=== PATIENT | male | born 1965 | race Caucasian/White ===

== ENCOUNTER 2018-11-07 16:51 | Observation (INO) | payer BC, SELFPAY ==
[2018-11-07 16:54] VITALS: BP 176/91; PULSE 73; RESP 18; TEMP 37.1; O2SAT 99; BMI 32.3
--- NOTE | 2018-11-07 17:17 | EKG12_ITS ---
Test Reason : CONFUSION Blood Pressure : / mmHG Vent. Rate : 065 BPM Atrial Rate : 065 BPM P-R Int : 168 ms QRS Dur : 094 ms QT Int : 402 ms P-R-T Axes : 040 041 049 degrees QTc Int : 418 ms Sinus rhythm with Premature atrial complexes with Aberrant conduction Otherwise normal ECG Confirmed by TOMAS PROCTOR, JOVAN ([id number]), newspaper managing editor CHUNG LUJAN ([id number] on 11/09/2018 9:20:13 AM Referred By: ANGUS Confirmed By:JOVAN MARIN MD
--- NOTE | 2018-11-07 17:17 | CT_ITS ---
STUDY: CT BRAIN WITHOUT CONTRAST REASON FOR EXAM: Male, 53 years old. Expressive aphasia since 9:00 AM. RADIATION DOSAGE (If Supplied By Facility): CTDIvol = ( 44.99 ) mGy, DLP = ( 762.36 ) mGycm TECHNIQUE: Transaxial CT imaging of the brain was performed without administration of intravenous contrast material. Individualized dose optimization techniques were used for this CT. COMPARISON: None. FINDINGS: Normal soft tissue structures. Normal calvarium. Normal size ventricles and extra-axial spaces for the patient's age. Normal white matter tracts of the cerebral hemispheres. Normal basal ganglia and thalami. Normal brainstem. Normal cerebellum. There is no intracranial hemorrhage. There are no findings of an acute ischemic infarction. Normal visualized paranasal sinuses. CT/Brain/Head without Contrast IMPRESSION: Normal unenhanced CT scan of the brain. Electronically Signed: Alex Gambino MD at 18:04 EST , Service support ,
--- NOTE | 2018-11-07 17:21 | NURSING ---
NO OLD EKGS
[2018-11-07 18:15] VITALS: BP 173/96; PULSE 63
[2018-11-07 18:42] LABS: Anion Gap 7 (5-15); BUN 16 mg/dL (7-18); BUN/Creat Ratio 17.4 RATIO (10-20); Calcium,Total 8.9 mg/dL (8.5-10.1); Chloride 107 mmol/L (98-107); Creatinine, Serum 0.92 mg/dL (0.70-1.30); EST Glomerular Filtration Rate 91 mL/min (>60); Est Glom Filt Rate - Afr Amer 110 mL/min (>60); Estimated Creatinine Clearance 100.75 ml/min; Glucose 126 mg/dL (74-106); Potassium 3.8 mmol/L (3.5-5.1); Sodium Level 140 mmol/L (136-145)
[2018-11-07 18:44] LABS: Absolute Lymphocyte Count 2.04 X10^3/ul (0.83-4.51); Absolute Neutrophil Count 3.7 X10^3/uL (2.0-7.7); Basophil# 0.02 X10^3/uL; Basophil% 0.3 % (0-1); Eosinophil# 0.24 X10^3/uL; Eosinophils% 3.6 % (0-5); Hematocrit 46.1 % (40-54); Hemoglobin 15.5 g/dl (13.0-16.5); Lymphocyte # 2.04 X10^3/ul (4.0); Lymphocyte % 30.2 % (19-41); Mean Corp Hgb Conc 33.6 g/gl (32-36); Mean Corpuscular Hgb 30.9 pg (27.0-32.0); Mean Platelet Vol. 10.1 fl (6.2-12.0); Monocyte# 0.71 X10^3/uL; Monocyte% 10.5 % (0-10); Neutrophil # 3.73 X10^3/uL (2.7-7.7); Neutrophil % 55.3 % (47-70); Platelet Count 265 K/mm3 (150-450); RBC Distribution Width CV 13.4 % (11.6-14.6); RBC Distribution Width SD 44.5 fl (35.1-43.9); Red Blood Count 5.01 M/mm3 (4.6-6.2); White Blood Count 6.8 K/mm3 (4.4-11.0)
[2018-11-07 18:46] LABS: POSITIVE COUNT NO; POSITIVE DIFFERENTIAL NO; POSITIVE MORPHOLOGY NO
[2018-11-07 19:05] LABS: Bacteria 0 SEEN /hpf (None Seen); Mucous, Urine 0 SEEN /hpf (<or=2+); Squamous Epithelial Cells - UA 0 SEEN /hpf (0-5)
[2018-11-07 19:07] VITALS: BP 172/107; PULSE 63; RESP 18; O2SAT 98
[2018-11-07 19:35] LABS: Color, Urine Straw (Yellow); Glucose, Dipstick Normal (Normal); Ketone-Dipstick Negative (Negative); Leukocyte Esterase-Dipstick Negative /ul (Negative); Nitrite-Dipstick Negative (Negative); Occult Blood-Urine Negative /ul (Negative); Protein-Dipstick Negative (Negative); Urine Bilirubin Dipstick Negative (Negative); Urine Clarity Clear (Clear); Urine Urobilinogen Normal (Normal)
[2018-11-07 19:50] VITALS: BMI 32.3
[2018-11-07 20:09] LABS: White Blood Cells 0-5 SEEN /hpf (0-5)
[2018-11-07 20:10] LABS: Red Blood Cells-Urine 0-5 SEEN /hpf (0-5)
--- NOTE | 2018-11-07 21:08 | HP.PCM_ITS ---
Problem List (1) GETACHEW (obstructive sleep apnea) Status: Chronic (2) Stroke-like symptoms Status: Acute History of Present Illness Date of Admission: 11/07/18 Chief Complaint: expressive aphasia The patient is a 53 year old M with a significant history of obstructive sleep apnea who presented because of expressive aphasia. 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 After the physical he went back to his job however he could not read. Also he felt some clumsiness in using his hands. Also he has difficulty in expressing his thoughts. Because of the symptoms he came to the emergency department. CT head at emergency department was unremarkable. As presentation patient was not hypoglycemic. Past Medical History Past Medical History (Chronic Problems): Chronic Problems GETACHEW (obstructive sleep apnea) (Chronic) Allergies No Known Allergies Allergy (Verified 11/07/18 16:57) Home Medications: Ambulatory Orders Medication Instructions Recorded NK 11/07/18 Surgical History: no surgical history Lives: With Family Smoking Status: Never smoker Tobacco Use: Non-smoker - *Family History Maternal History Items: Cancer - SKIN CANCER Paternal History Items: - - Rheumatoid arthritis Review of Systems Constitutional: Denies: Chills, Fever, Weight Change HEENT: Denies: Head Aches, Sinus Congestion, Sinus Drainage Cardiovascular: Denies: Chest Pain, Palpitations Respiratory: Denies: Cough, Shortness of breath at rest, Sputum production Gastrointestinal: Denies: Abdominal Pain, Nausea, Vomiting Genitourinary: Denies: Dysuria Musculoskeletal: Denies: Joint Pain, Joint Tenderness Skin: Denies: Rash, Wounds Neurological: Reports: Change in Speech, Confusion. Denies: Focal weakness, Numbness, Tingling Psychiatric: Denies: Anxiety, Depression, Homicidal Ideations, Suicidal Ideations Hematologic/ Lymphatic: Denies: Easy Bruising, Easy Bleeding VTE Information - Inpt Only VTE Present on Admission: No VTE Mechan Device Prophylaxis: None VTE Pharm Prophylaxis ordered?: Yes Patient Problems: Active and Suspected Problems Stroke-like symptoms (Acute) - Physical Exam General: Alert, Oriented x3, Cooperative HEENT: Atraumatic, PERRLA, EOMI, Normocephalic Neck: Supple, No JVD, Negative Carotid Bruits Lungs: Clear to auscultation, Normal air movement Cardiovascular: Regular rate, No murmurs Abdomen: Bowel Sounds Present, Soft, Non Tender Extremities: No edema, Capillary Refill Less than 3 Seconds Skin: No rashes, No breakdown Musculoskeletal: No Tenderness to Palpation of Joints or Extremities Neurological: Motor Exam 5/5 strength throughout, Muscle tone normal, - - Dull sensation on the left arm. Mild expressive aphasia noted. Psych/Mental Status: Normal Affect, Appropriate Vital Signs Temp Pulse Resp BP Pulse Ox 98.7 F 63 18 172/107 H 98 11/07/18 16:54 11/07/18 19:07 11/07/18 19:07 11/07/18 19:07 11/07/18 19:07 Oxygen Delivery Method Room Air Weight: 108.136 kg Body Mass Index (BMI) 32.3 Laboratory Tests Past 24 Hrs 11/07/18 11/07/18 11/07/18 17:35 17:35 17:35 WBC 6.8 RBC 5.01 Hgb 15.5 Hct 46.1 MCV 92.0 MCH 30.9 MCHC 33.6 RDW 13.4 RDW Differential 44.5 H Plt Count 265 MPV 10.1 Immature Gran % (Auto) 0.100 Neut % (Auto) 55.3 Lymph % (Auto) 30.2 Murray % (Auto) 10.5 H Eos % (Auto) 3.6 Baso % (Auto) 0.3 Absolute Neuts (auto) 3.7 Absolute Lymphs (auto) 2.04 Total Counted Not Reportable Sodium 140 Potassium 3.8 Chloride 107 Carbon Dioxide 26.0 Anion Gap 7 BUN 16 Creatinine 0.92 Estim Creat Clear Calc 100.75 Est GFR (MDRD) Af Amer 110 Est GFR (MDRD) Non-Af 91 BUN/Creatinine Ratio 17.4 Glucose 126 H Calcium 8.9 Troponin I < 0.015 Urine Color Urine Clarity Urine pH Ur Specific [place] Urine Protein Urine Glucose (UA) Urine Ketones Urine Occult Blood Urine Nitrite Urine Bilirubin Urine Urobilinogen Ur Leukocyte Esterase Urine RBC Urine WBC Ur Squamous Epith Cells Urine Bacteria Urine Mucus Ethyl Alcohol 7.0 11/07/18 19:00 WBC RBC Hgb Hct MCV MCH MCHC RDW RDW Differential Plt Count MPV Immature Gran % (Auto) Neut % (Auto) Lymph % (Auto) [place] % (Auto) Eos % (Auto) Baso % (Auto) Absolute Neuts (auto) Absolute Lymphs (auto) Total Counted Sodium Potassium Chloride Carbon Dioxide Anion Gap BUN Creatinine Estim Creat Clear Calc Est GFR (MDRD) Af Amer Est GFR (MDRD) Non-Af BUN/Creatinine Ratio Glucose Calcium Troponin I Urine Color Straw Urine Clarity Clear Urine pH 7.0 Ur Specific [place] 1.010 Urine Protein Negative Urine Glucose (UA) Normal Urine Ketones Negative Urine Occult Blood Negative Urine Nitrite Negative Urine Bilirubin Negative Urine Urobilinogen Normal Ur Leukocyte Esterase Negative Urine RBC 0-5 SEEN Urine WBC 0-5 SEEN Ur Squamous Epith Cells 0 SEEN Urine Bacteria 0 SEEN Urine Mucus 0 SEEN Ethyl Alcohol Assessment/Plan All Active Problems Stroke-like symptoms (Acute) The patient is a 53 year old M with a significant history of obstructive sleep apnea who presented because of expressive aphasia; and incoordination of his upper extremities concerning for strokelike symptoms. Strokelike symptoms At presentation patient was not hypoglycemic NINDS NIH Scale was 0 at emergency department. At my evaluation NINDS NIH Scale was 2 because sensation was more sharp on the right side; and patient has some mild expressive aphasia.. CT of the head independently reviewed showed no acute brain or head pathology. -Check Hba1c, Lipid level Physical therapy, occupational therapy and speech therapy to work with patient. N.p.o. until bedside swallow eval. Patient passed swallow eval and cardiac diet was ordered. Daily aspirin. High intensity statin ordered Lipid profile and A1c ordered. Permissive hypertension. Control blood pressure with labetalol for systolic blood pressure of more than 220 or diastolic blood pressure of more than 120. -Permissive HTN for 24 hrs, fdc goal BP < 120/80 mmHg and goal Hba1c < 7% MRI/MRA of head; brain; and neck. Echocardiogram ordered. Elevated blood pressure without diagnosis of hypertension. Patient denies any previous history of hypertension. His elevated blood pressure could be due to autonomic effects to perfuse ischemic penumbra. Highest systolic blood pressure on admission was 176; diastolic blood pressure is 107. Permissive hypertension as above. After 24-48 hours consider blood pressure control if her blood pressure remains elevated with ith a buttermaker continuous churn goal BP < 120/80 mmHg Obstructive sleep apnea CPAP ordered DVT prophylaxis Subcutaneous heparin. Code Visit OBSV E&M: 89663 Initial observation care L3
[2018-11-07 21:51] VITALS: BP 174/94; PULSE 70; RESP 11; O2SAT 96
[2018-11-07 22:55] VITALS: BP 157/85; PULSE 59; RESP 20; TEMP 36.8; O2SAT 97
[2018-11-07 23:00] VITALS: BMI 32.3
[2018-11-07 23:02] VITALS: PULSE 60
[2018-11-08] VITALS (9 sets, daily range): BP systolic 141–154; BP diastolic 77–93; PULSE 58–75; RESP 16–18; TEMP 36.4–37.3; O2SAT 95–98; BMI 32.3
--- NOTE | 2018-11-08 00:25 | ED.DCSUM_ITS ---
- ER Visit Summary Date of Service: 11/08/18 Chief Complaint: Confusion History of Present Illness: The patient is a [address] Antonio mark. He reports that today at work he had an episode with slurred words, inability to read, he can comprehend a conversation and had an expressive aphasia, and decrea sed dexterity with his left hand. He reports that great deal of this is back to normal. He reports that he still feels mildly confused and is having word searching. Also continues to have blurred vision. He denies a headache. No vertigo. No numbness. Physical Examination: Vitals: Stable. Afebrile. General: Well-nourished and well-developed. Head: Normocephalic atraumatic. Neck: Supple, no lymphadenopathy. No JVD. Nontender. Cardiovascular: Regular rate and rhythm. No murmurs. Respiratory: No respiratory distress. Clear to auscultation bilaterally. Abdominal: Soft, nontender, nondistended, normal bowel sounds. No guarding, rebound, or peritoneal signs. Back: Nontender. Extremities: Nontender, no edema. Skin: Normal color, no rash. Neurologic: Alert and oriented ?3. Cranial nerves II through XII are intact. Normal strength and sensation. Psych: Normal affect. Test Results: EKG is sinus at [address] changes. Troponin is negative. UA is normal. Chem-7 is more for glucose 126. CBC is more for monocytes of 11. Blood alcohol level 0. CT brain shows no acute disease. Emergency Department Course and Treatment: Patient's NIH scale is 0. He is not a TPA candidate. However, I am concerned that he may have had a stroke. Treatment Plan: Patient was discussed with Dr. Ruiz. He will be admitted to the hospital for further evaluation and treatment. Disposition: Admitted in stable condition. Impression: 1. TIA. This note was generated with [employer] dictation software. It may contain incorrect words, spelling, and punctuation that were not noted in review of the chart prior to signing ED Disposition - Plan for ED Patient: Disposition: Acute Care Hospital [facility] Chief Complaint: Confusion
--- NOTE | 2018-11-08 01:12 | MRI_ITS ---
STUDY: MRA NECK WITH AND WITHOUT CONTRAST REASON FOR EXAM: Male, 53 years old. cva, slurred speech, expressive aphasia, blurred vision. TECHNIQUE: 3-D ojtu-th-anzshz (TOF) imaging was performed in an 1.5 T MRI scanner. 10 ml of Gadavist was administered for the contrast enhanced images. COMPARISON: None. FINDINGS: RIGHT CAROTID ARTERIES: Normal right common carotid artery (CCA). Normal right common carotid bulb. Normal origin of the right internal carotid (ICA) artery without a hemodynamically significant stenosis. Normal visualized cervical portion of the right internal carotid artery. Normal origin of the right external carotid artery (ECA). LEFT CAROTID ARTERIES: Normal left common carotid artery (CCA). Normal left common carotid bulb. Normal origin of the left internal carotid (ICA) artery without a hemodynamically significant stenosis. Normal visualized cervical portion of the left internal carotid artery. Normal origin of the left external carotid artery (ECA). VERTEBRAL ARTERIES: There is antegrade flow within the bilateral vertebral arteries with a small right vertebral artery, and a dominant left vertebral artery. MRI/MRA Neck WITH and W/O Contrast IMPRESSION: Unremarkable bilateral cervical carotid and vertebral arteries. Electronically Signed: Genia Cardoso MD at 10:52 EST Tel , Service support ,
--- NOTE | 2018-11-08 01:12 | ECHOD_ITS ---
Reason For Study: TIA/CVA Procedure This was a 2D Doppler, Color Flow transthoracic echocardiogram. Exam performed portable in patient room. Left Ventricle Normal size and thickness. The estimated ejection fraction is 65 %. Stage 1 diastolic dysfunction. No regional wall motion abnormalities noted. Right Ventricle Normal size and thickness. Normal systolic function. Atria Normal left atrium. Normal right atrium. Normal atrial septum. Bubble contrast study negative for right to left interatrial shunt. Mitral Valve The mitral valve is structurally normal. No prolapse or stenosis seen. Tricuspid Valve Normal tricuspid valve. Unable to estimate RV systolic pressure due to inadequate jet, pulmonary artery pressure probably normal. Aortic Valve Normal aortic valve. Trisinus/trileaflet aortic valve. Pulmonic Valve Normal pulmonic valve. Great Vessels Normal aortic root. Normal arch. Normal inferior vena cava. Inferior vena cava collapse with sniff. Pericardium/Pleural No pericardial effusion. Medication Performed a rapid injection of agitated mix of 9 cc saline and 1cc air to assess for atrial septal defect. MMode/2D Measurements & Calculations LVIDd: 4.7 cm IVSd: 1.3 cm Ao root diam: 3.0 cm LVIDs: 2.9 cm LVPWd: 1.2 cm RVDd: 3.5 cm FS: 38.7 % LAV(MOD-bp): 43.1 ml LA A4 area: 17.0 cm2 LA dimension(2D): 3.5 cm LAV(MOD-bp) Indexed: 18.8 ml/m2 LAV(MOD-sp2): 39.4 ml LAV(MOD-sp4): 45.4 ml RA A4 area: 17.2 cm2 Doppler Measurements & Calculations MV E max nic: 68.4 cm/sec Lat Peak E' Nic: 7.3 cm/sec Med Peak E' Nic: 5.2 cm/sec MV A max nic: 90.1 cm/sec E/E' lat: 9.4 E/E' med: 13.1 MV E/A: 0.76 Ao V2 max: 135.1 cm/sec LV V1 max: 98.2 cm/sec PA V2 max: 93.2 cm/sec Ao max P.3 mmHg LV V1 max P.9 mmHg Interpretation Summary The estimated ejection fraction is 65 %. Stage 1 diastolic dysfunction. Bubble contrast study negative for right to left interatrial shunt. Unable to estimate RV systolic pressure due to inadequate jet, pulmonary artery pressure probably normal. There is no comparison study available. Ordering Physician: Dawson Ruiz Referring Physician: Luis Felipe George Performed By: Betzaida Dorantes RDCS
--- NOTE | 2018-11-08 01:12 | MRI_ITS ---
STUDY: MRA OF THE HEAD WITHOUT CONTRAST REASON FOR EXAM: Male, 53 years old. cva, slurred speech, expressive aphasia, blurred vision TECHNIQUE: 3-D mtsl-wy-prwymh (TOF) imaging was performed with MIPs. The study was performed unenhanced. COMPARISON: None. FINDINGS: Normal bilateral petrous carotid arteries. Normal right cavernous carotid artery with a normal supraclinoid bifurcation. Normal left cavernous carotid artery with a normal supraclinoid bifurcation. There is non-visualization of the right A1 segment of the anterior cerebral arteries consistent with either aplastic development or an occlusion. Normal left A1 segments of the anterior cerebral artery. Normal intact anterior communicating artery (ACOM). Normal bilateral A2 segments of the anterior cerebral arteries. Normal right M1 and M2 segments of the middle cerebral arteries, with a normal M1 bifurcation. Normal left M1 and M2 segments of the middle cerebral arteries, with a normal M1 bifurcation. 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 Normal left posterior communicating artery (PCOM). There is a small atretic right vertebral artery with a dominant left vertebral artery. Normal basilar artery with a normal basilar bifurcation. The visualized bilateral superior cerebellar (SCA) arteries are normal. Normal bilateral posterior cerebral arteries. There is no demonstrated aneurysm of the [place] of [place]. There is no major vessel occlusion or hemodynamically significant stenosis. There is no demonstrated abnormality of the visualized brain. MRI/MRA Head ONLY without Contrast IMPRESSION: Unremarkable MRA of the head Electronically Signed: Genia Cardoso MD at 10:46 EST Tel , Service support ,
--- NOTE | 2018-11-08 01:12 | MRI_ITS ---
STUDY: MRI BRAIN WITHOUT CONTRAST REASON FOR EXAM: Male, 53 years old. cva, slurred speech, expressive aphasia, blurred vision TECHNIQUE: Standardized multiplanar fat and water weighted pulse sequences were obtained. COMPARISON: 11/07/2018 FINDINGS: Normal size of the ventricles and extra-axial spaces for the patient's age. Normal white matter tracts of the supratentorial brain. Normal bilateral basal ganglia. Normal thalami. There is no extra-axial fluid accumulation. Normal flow voids within the major intracranial circulation suggesting patency by spin echo criteria. Normal sella turcica, pituitary gland, infundibular stalk, optic chiasm and hypothalamus. Normal tectal plate and pineal gland. Normal midbrain, thomas and medulla. Normal cerebellum. Normal basal cisterns. Normal bilateral temporal bones. Normal bilateral internal auditory canals. No demonstrated orbital abnormality, within the constraints of a routine brain study. Normal visualized paranasal sinuses. Normal calvarium and skull base. Normal visualized soft tissue structures. Normal visualized upper cervical spine. MRI/Brain without Contrast IMPRESSION: Normal unenhanced MRI of the brain. Electronically Signed: Genia Cardoso MD at 10:29 EST Tel , Service support ,
[2018-11-08 06:08] LABS: Cholesterol 139 mg/dL (200); High Density Lipoprotein 27 mg/dL; Triglycerides 179 mg/dL; Very Low Density Lipoprotein 36 mg/dL (5-40)
[2018-11-08] MEDS: Heparin Injection (Vial) 5,000 UNIT/ML VIAL 5000 UNIT SC (06:22)
[2018-11-08 06:31] LABS: Hemoglobin A1c 6.2 % (4.2-6.3)
[2018-11-08] MEDS: Aspirin 81 MG TAB.CHEW PO (10:22)
--- NOTE | 2018-11-08 11:03 | PCM.PN.HOSP ---
Patient Problems: Active and Suspected Problems Stroke-like symptoms (Acute) Subjective: No further events. Did feel dizzy when he was up today. Vitals/I&O's: Vital Signs Temp Pulse Resp BP Pulse Ox 37.3 C 58 L 18 141/93 H 96 11/08/18 10:15 11/08/18 10:15 11/08/18 10:15 11/08/18 10:15 11/08/18 10:15 Oxygen Delivery Method Room Air Weight: 108.3 kg Body Mass Index (BMI) 32.3 Intake and Output for Last 24 Hours 11/06/18 11/07/18 11/08/18 23:59 23:59 23:59 Intake Total 200 / 200 200 / 200 Balance 200 / 200 200 / 200 General: Alert, No apparent distress HEENT: Atraumatic, PERRLA, EOMI, Normocephalic Oral: Moist Mucosa, No Gingival or Mucosal Lesions/ Ulcerations Neck: No Nodes, Thyroid Normal Size and Texture Lungs: Clear to auscultation, Normal air movement, No rhonchi, No wheeze Cardiovascular: Regular rate, Regular Rhythm, Normal S1, Normal S2, No murmurs Abdomen: Bowel Sounds Present, Soft, Non Tender, Non-Distended, No Hepato-splenomegaly, Passing Flatus Extremities: No edema, No Calf Tenderness Skin: No rashes, No breakdown Neurological: Cranial nerves II-XII grossly intact, Neuro grossly intact, Motor Exam 5/5 strength throughout Psych/Mental Status: Normal Affect, Appropriate Laboratory Results 11/07/18 17:35: WBC 6.8, RBC 5.01, Hgb 15.5, Hct 46.1, MCV 92.0, MCH 30.9, MCHC 33.6, RDW 13.4, RDW Differential 44.5 H, Plt Count 265, MPV 10.1, Immature Gran % (Auto) 0.100, Neut % (Auto) 55.3, Lymph % (Auto) 30.2, [place] % (Auto) 10.5 H, Eos % (Auto) 3.6, Baso % (Auto) 0.3, Absolute Neuts (auto) 3.7, Absolute Lymphs (auto) 2.04, Total Counted Not Reportable 11/07/18 17:35: Sodium 140, Potassium 3.8, Chloride 107, Carbon Dioxide 26.0, Anion Gap 7, BUN 16, Creatinine 0.92, Estim Creat Clear Calc 100.75, Est GFR (MDRD) Af Amer 110, Est GFR (MDRD) Non-Af 91, BUN/Creatinine Ratio 17.4, Glucose 126 H, Calcium 8.9, Troponin I < 0.015 11/07/18 17:35: Ethyl Alcohol 7.0 11/07/18 19:00: Urine Color Straw, Urine Clarity Clear, Urine pH 7.0, Ur Specific [place] 1.010, Urine Protein Negative, Urine Glucose (UA) Normal, Urine Ketones Negative, Urine Occult Blood Negative, Urine Nitrite Negative, Urine Bilirubin Negative, Urine Urobilinogen Normal, Ur Leukocyte Esterase Negative, Urine RBC 0-5 SEEN, Urine WBC 0-5 SEEN, Ur Squamous Epith Cells 0 SEEN, Urine Bacteria 0 SEEN, Urine Mucus 0 SEEN 11/08/18 05:20: Hemoglobin A1c 6.2 11/08/18 05:20: Triglycerides 179, Cholesterol 139, LDL Cholesterol 76, VLDL Cholesterol 36, HDL Cholesterol 27 L Clinical Impression(s) from Imaging Studies Brain CT 11/07/18 17:17 IMPRESSION: Normal unenhanced CT scan of the brain. Electronically Signed: Alex Gambino MD at 18:04 EST , Service support , Brain MRI 11/08/18 01:12 IMPRESSION: Normal unenhanced MRI of the brain. Electronically Signed: Genia Cardoso MD at 10:29 EST Tel , Service support , Head MRA 11/08/18 01:12 IMPRESSION: Unremarkable MRA of the head Electronically Signed: Genia Cardoso MD at 10:46 EST Tel , Service support , Neck MRA 11/08/18 01:12 IMPRESSION: Unremarkable bilateral cervical carotid and vertebral arteries. Electronically Signed: Genia Cardoso MD at 10:52 EST Tel , Service support , Current Medications Aspirin (Aspirin, Baby) 81 mg PO DAILY@0800 [facility] Last Admin: 11/08/18 10:22 Dose: 81 mg Atorvastatin Calcium (Lipitor) 80 mg PO QHS [facility] Bisacodyl (Dulcolax) 5 mg PO DAILY PRN PRN PRN Reason: Constipation Heparin Sodium (Porcine) (Heparin Na) 5,000 unit SC Q8 [facility] Last Admin: 11/08/18 06:22 Dose: 5,000 unit Labetalol HCl (Trandate) 10 mg IV Q10M PRN PRN PRN Reason: SBP> 220 or DBP > 120 Magnesium Hydroxide (Milk Of Magnesia) 30 ml PO DAILY PRN PRN Reason: Constipation Sodium Chloride () 5 - 15 ml IV UD PRN PRN Reason: SALINE FLUSH Medical Necessity - Tobacco Use Smoking Status: Never smoker Tobacco Use: Non-smoker Assessment/Plan All Active Problems Stroke-like symptoms (Acute) 1. suspected TIA Myriad of symptoms: dizziness, expressive aphasia, confusion MRI, MRA negative. echo pending neuro consult. TIA v vasovagal episode continue ASA and HIS 2. HTN improved 3. DVT proph: SQ heparin. DW patient's at bedside. Code Visit OBSV E&M: 32693 Subsequent observation care L3
--- NOTE | 2018-11-08 11:07 | PN_ITS ---
Patient Problems: Active and Suspected Problems Stroke-like symptoms (Acute) Subjective: No further events. Did feel dizzy when he was up today. Vitals/I&O's: Vital Signs Temp Pulse Resp BP Pulse Ox 37.3 C 58 L 18 141/93 H 96 11/08/18 10:15 11/08/18 10:15 11/08/18 10:15 11/08/18 10:15 11/08/18 10:15 Oxygen Delivery Method Room Air Weight: 108.3 kg Body Mass Index (BMI) 32.3 Intake and Output for Last 24 Hours 11/06/18 11/07/18 11/08/18 23:59 23:59 23:59 Intake Total 200 / 200 200 / 200 Balance 200 / 200 200 / 200 General: Alert, No apparent distress HEENT: Atraumatic, PERRLA, EOMI, Normocephalic Oral: Moist Mucosa, No Gingival or Mucosal Lesions/ Ulcerations Neck: No Nodes, Thyroid Normal Size and Texture Lungs: Clear to auscultation, Normal air movement, No rhonchi, No wheeze Cardiovascular: Regular rate, Regular Rhythm, Normal S1, Normal S2, No murmurs Abdomen: Bowel Sounds Present, Soft, Non Tender, Non-Distended, No Hepato- splenomegaly, Passing Flatus Extremities: No edema, No Calf Tenderness Skin: No rashes, No breakdown Neurological: Cranial nerves II-XII grossly intact, Neuro grossly intact, Motor Exam 5/5 strength throughout Psych/Mental Status: Normal Affect, Appropriate Laboratory Results 11/07/18 17:35: WBC 6.8, RBC 5.01, Hgb 15.5, Hct 46.1, MCV 92.0, MCH 30.9, MCHC 33.6, RDW 13.4, RDW Differential 44.5 H, Plt Count 265, MPV 10.1, Immature Gran % (Auto) 0.100, Neut % (Auto) 55.3, Lymph % (Auto) 30.2, [place] % (Auto) 10.5 H, Eos % (Auto) 3.6, Baso % (Auto) 0.3, Absolute Neuts (auto) 3.7, Absolute Lymphs (auto) 2.04, Total Counted Not Reportable 11/07/18 17:35: Sodium 140, Potassium 3.8, Chloride 107, Carbon Dioxide 26.0, Anion Gap 7, BUN 16, Creatinine 0.92, Estim Creat Clear Calc 100.75, Est GFR (MDRD) Af Amer 110, Est GFR (MDRD) Non-Af 91, BUN/Creatinine Ratio 17.4, Glucose 126 H, Calcium 8.9, Troponin I < 0.015 11/07/18 17:35: Ethyl Alcohol 7.0 11/07/18 19:00: Urine Color Straw, Urine Clarity Clear, Urine pH 7.0, Ur Specific [place] 1.010, Urine Protein Negative, Urine Glucose (UA) Normal, Urine Ketones Negative, Urine Occult Blood Negative, Urine Nitrite Negative, Urine Bilirubin Negative, Urine Urobilinogen Normal, Ur Leukocyte Esterase Negative, Urine RBC 0-5 SEEN, Urine WBC 0-5 SEEN, Ur Squamous Epith Cells 0 SEEN, Urine Bacteria 0 SEEN, Urine Mucus 0 SEEN 11/08/18 05:20: Hemoglobin A1c 6.2 11/08/18 05:20: Triglycerides 179, Cholesterol 139, LDL Cholesterol 76, VLDL Cholesterol 36, HDL Cholesterol 27 L Clinical Impression(s) from Imaging Studies Brain CT 11/07/18 17:17 IMPRESSION: Normal unenhanced CT scan of the brain. Electronically Signed: Alex Gambino MD at 18:04 EST , Service support , Brain MRI 11/08/18 01:12 IMPRESSION: Normal unenhanced MRI of the brain. Electronically Signed: Genia Cardoso MD at 10:29 EST Tel , Service support , Head MRA 11/08/18 01:12 IMPRESSION: Unremarkable MRA of the head Electronically Signed: Genia Cardoso MD at 10:46 EST Tel , Service support , Neck MRA 11/08/18 01:12 IMPRESSION: Unremarkable bilateral cervical carotid and vertebral arteries. Electronically Signed: Genia Cardoso MD at 10:52 EST Tel , Service support , Current Medications Aspirin (Aspirin, Baby) 81 mg PO DAILY@0800 [facility] Last Admin: 11/08/18 10:22 Dose: 81 mg Atorvastatin Calcium (Lipitor) 80 mg PO QHS [facility] Bisacodyl (Dulcolax) 5 mg PO DAILY PRN PRN PRN Reason: Constipation Heparin Sodium (Porcine) (Heparin Na) 5,000 unit SC Q8 [facility] Last Admin: 11/08/18 06:22 Dose: 5,000 unit Labetalol HCl (Trandate) 10 mg IV Q10M PRN PRN PRN Reason: SBP> 220 or DBP > 120 Magnesium Hydroxide (Milk Of Magnesia) 30 ml PO DAILY PRN PRN Reason: Constipation Sodium Chloride () 5 - 15 ml IV UD PRN PRN Reason: SALINE FLUSH Medical Necessity - Tobacco Use Smoking Status: Never smoker Tobacco Use: Non-smoker Assessment/Plan All Active Problems Stroke-like symptoms (Acute) 1. suspected TIA * Myriad of symptoms: dizziness, expressive aphasia, confusion * MRI, MRA negative. * echo pending * neuro consult. * TIA v vasovagal episode * continue ASA and HIS 2. HTN * improved 3. DVT proph: SQ heparin. DW patient's at bedside. Code Visit OBSV E&M: 92300 Subsequent observation care L3
--- NOTE | 2018-11-08 11:51 | CON.PCM_ITS ---
Reason for Consult Date of Consultation: 11/08/18 Reason for Consultation: aphasia History of Present Illness: The patient is a 53 year old M presented with word finding problems, beginning about 6am yesterday. 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 reports he had fasted the night before for lab testing, which was done then noted difficulty reading at work. went to cafeteria and ate, then improved today but notes he had abnormal language, and reports confusion until at least two this am. reports slurred speech, blurry vision, ringing in ears, difficulty with comprehension. she feels he was swaying and leaning to one side when he walked, to his left. gets up normally at 4am, and reports he was normal until 6am. admits to significant stress due to sons illness over the weekend, still has stress. uses cpap all night, every night for martita. denies insomnia until two nights ago. reports mild dull headache yesterday, normally doesnt have headache. per admit h&p:The patient is a 53 year old M with a significant history of obstructive sleep apnea who presented because of expressive aphasia. 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 After the physical he went back to his job however he could not read. Also he felt some clumsiness in using his hands. Also he has difficulty in expressing his thoughts. Because of the symptoms he came to the emergency department. CT head at emergency department was unremarkable. As presentation patient was not hypoglycemic. Past Medical History Past Medical History (Chronic Problems): Chronic Problems MARITTA (obstructive sleep apnea) (Chronic) Allergies No Known Allergies Allergy (Verified 11/07/18 16:57) Home Medications: Ambulatory Orders Medication Instructions Recorded NK 11/07/18 Surgical History: no surgical history Lives: With Family Smoking Status: Never smoker Tobacco Use: Non-smoker - *Family History Maternal History Items: Cancer - SKIN CANCER Paternal History Items: - - Rheumatoid arthritis Review of Systems Constitutional: Denies: Chills, Fever, Weight Change HEENT: Denies: Head Aches, Sinus Congestion, Sinus Drainage Cardiovascular: Denies: Chest Pain, Palpitations Respiratory: Denies: Cough, Shortness of breath at rest, Sputum production Gastrointestinal: Denies: Abdominal Pain, Nausea, Vomiting Genitourinary: Denies: Dysuria Musculoskeletal: Denies: Joint Pain, Joint Tenderness Skin: Denies: Rash, Wounds Neurological: Reports: Balance problems, Blurred vision, Change in Speech. Denies: Focal weakness, Numbness, Tingling Psychiatric: Reports: Anxiety. Denies: Depression, Homicidal Ideations, Suicidal Ideations Hematologic/ Lymphatic: Denies: Easy Bruising, Easy Bleeding Patient Problems: Active and Suspected Problems Stroke-like symptoms (Acute) - Physical Exam Vital Signs Temp Pulse Resp BP Pulse Ox 37.3 C 63 18 141/93 H 96 11/08/18 10:15 11/08/18 11:10 11/08/18 10:15 11/08/18 10:15 11/08/18 10:15 Oxygen Delivery Method Room Air Weight: 108.3 kg Body Mass Index (BMI) 32.3 Intake and Output for Last 24 Hours 11/06/18 11/07/18 11/08/18 23:59 23:59 23:59 Intake Total 200 / 200 200 / 200 Balance 200 / 200 200 / 200 Laboratory Tests Past 24 Hrs 11/07/18 11/07/18 11/07/18 17:35 17:35 17:35 WBC 6.8 RBC 5.01 Hgb 15.5 Hct 46.1 MCV 92.0 MCH 30.9 MCHC 33.6 RDW 13.4 RDW Differential 44.5 H Plt Count 265 MPV 10.1 Immature Gran % (Auto) 0.100 Neut % (Auto) 55.3 Lymph % (Auto) 30.2 [place] % (Auto) 10.5 H Eos % (Auto) 3.6 Baso % (Auto) 0.3 Absolute Neuts (auto) 3.7 Absolute Lymphs (auto) 2.04 Total Counted Not Reportable Sodium 140 Potassium 3.8 Chloride 107 Carbon Dioxide 26.0 Anion Gap 7 BUN 16 Creatinine 0.92 Estim Creat Clear Calc 100.75 Est GFR (MDRD) Af Amer 110 Est GFR (MDRD) Non-Af 91 BUN/Creatinine Ratio 17.4 Glucose 126 H Hemoglobin A1c Calcium 8.9 Troponin I < 0.015 Triglycerides Cholesterol LDL Cholesterol VLDL Cholesterol HDL Cholesterol Urine Color Urine Clarity Urine pH Ur Specific [place] Urine Protein Urine Glucose (UA) Urine Ketones Urine Occult Blood Urine Nitrite Urine Bilirubin Urine Urobilinogen Ur Leukocyte Esterase Urine RBC Urine WBC Ur Squamous Epith Cells Urine Bacteria Urine Mucus Ethyl Alcohol 7.0 11/07/18 11/08/18 11/08/18 19:00 05:20 05:20 WBC RBC Hgb Hct MCV MCH MCHC RDW RDW Differential Plt Count MPV Immature Gran % (Auto) Neut % (Auto) Lymph % (Auto) [place] % (Auto) Eos % (Auto) Baso % (Auto) Absolute Neuts (auto) Absolute Lymphs (auto) Total Counted Sodium Potassium Chloride Carbon Dioxide Anion Gap BUN Creatinine Estim Creat Clear Calc Est GFR (MDRD) Af Amer Est GFR (MDRD) Non-Af BUN/Creatinine Ratio Glucose Hemoglobin A1c 6.2 Calcium Troponin I Triglycerides 179 Cholesterol 139 LDL Cholesterol 76 VLDL Cholesterol 36 HDL Cholesterol 27 L Urine Color Straw Urine Clarity Clear Urine pH 7.0 Ur Specific [place] 1.010 Urine Protein Negative Urine Glucose (UA) Normal Urine Ketones Negative Urine Occult Blood Negative Urine Nitrite Negative Urine Bilirubin Negative Urine Urobilinogen Normal Ur Leukocyte Esterase Negative Urine RBC 0-5 SEEN Urine WBC 0-5 SEEN Ur Squamous Epith Cells 0 SEEN Urine Bacteria 0 SEEN Urine Mucus 0 SEEN Ethyl Alcohol mri reviewed, no acute Current Home Med List Medication Instructions Recorded Confirmed Type NK 11/07/18 11/07/18 History Current Medications Aspirin 81 mg 11/08/18 08:00 11/08/18 10:22 Aspirin, Baby PO 81 mg DAILY@0800 [facility] Administration Atorvastatin Calcium 80 mg 11/08/18 22:00 Lipitor PO QHS [facility] Bisacodyl 5 mg 11/08/18 01:12 Dulcolax PO DAILY PRN PRN Constipation Heparin Sodium (Porcine) 5,000 unit 11/08/18 06:00 11/08/18 06:22 Heparin Na SC 5,000 unit Q8 [facility] Administration Labetalol HCl 10 mg 11/08/18 01:12 Trandate IV Q10M PRN PRN SBP> 220 or DBP > 120 Magnesium Hydroxide 30 ml 11/08/18 01:12 Milk Of Magnesia PO DAILY PRN Constipation Sodium Chloride 5 - 15 ml 11/07/18 23:30 IV UD PRN SALINE FLUSH Assessment/Plan All Active Problems Stroke-like symptoms (Acute) complex migraine vs conversion disorder mri neg ok to dc asa daily continue cpap good compliance dc lipitor if no hypercholesterolemia
--- NOTE | 2018-11-08 14:20 | DCINST_ITS ---
- Discharge Diagnoses Current Active Problems: Current Active and Chronic Problems GETACHEW (obstructive sleep apnea) (Chronic) Stroke-like symptoms (Acute) You will use the following diet at home:: Cardiac Your food should be the consistency of: Regular Discharge Activity: Return to Normal Activity Call your doctor if you observe: - - unilateral weakness. difficulty speaking. Allergies/Adverse Reactions: Allergies No Known Allergies Allergy (Verified 11/07/18 16:57) Medications to take at Discharge Aspirin [Aspirin, Baby] 81 mg PO DAILY@0800 tab.chew 11/08/18 Primary Care Physician: Luis Felipe George MD [Primary Care Provider] - Within 2 Weeks Test Results: Test results from this visit will be discussed in further detail at your follow- up appointment, if applicable.
--- NOTE | 2018-11-08 14:20 | PCM.DC.SUM ---
Discharge Date and Diagnosis - Problem List Patient Problems: Active and Suspected Problems Stroke-like symptoms (Acute) Date of Admission: 11/07/18 Date of Discharge: 11/08/18 - Primary Discharge Diagnosis Active and Suspected Problems Stroke-like symptoms (Acute) - Secondary Discharge Diagnosis Chronic Problems GETACHEW (obstructive sleep apnea) (Chronic) Hospital Course and Treatment Imaging Results: Clinical Impression(s) from Imaging Studies Brain CT 11/07/18 17:17 IMPRESSION: Normal unenhanced CT scan of the brain. Electronically Signed: Alex Gambino MD at 18:04 EST , Service support , Brain MRI 11/08/18 01:12 IMPRESSION: Normal unenhanced MRI of the brain. Electronically Signed: Genia Cardoso MD at 10:29 EST Tel , Service support , Head MRA 11/08/18 01:12 IMPRESSION: Unremarkable MRA of the head Electronically Signed: Genia Cardoso MD at 10:46 EST Tel , Service support , Neck MRA 11/08/18 01:12 IMPRESSION: Unremarkable bilateral cervical carotid and vertebral arteries. Electronically Signed: Genia Cardoso MD at 10:52 EST Tel , Service support , Jaya Ross MD. Neurology. Operations: None Procedures: 2-D Echocardiogram Summary of Care Provided: The patient is a 53 year old M who presents with a myriad of complaints, including stress of the aphasia weakness and confusion. Patient was fasting for work when this occurred. Symptoms did resolve. Patient was evaluated in the emergency room and patient. The neurologic evaluation including MRI of the brain, MRA of the head and neck and echocardiogram. All of which were negative. Patient was seen in consultation by neurology who feels the patient's symptoms were probably related to complex migraine or a conversion disorder. Neurology did recommend continue with aspirin. Patient advised to return if he has any recurrent symptoms. [] Patient Problems: Active and Suspected Problems Stroke-like symptoms (Acute) - Physical Exam Vital Signs Temp Pulse Resp BP Pulse Ox 36.9 C 64 18 154/83 H 95 11/08/18 13:43 11/08/18 13:43 11/08/18 13:43 11/08/18 13:43 11/08/18 13:43 Oxygen Delivery Method Room Air Weight: 108.3 kg Body Mass Index (BMI) 32.3 Intake and Output for Last 24 Hours 11/06/18 11/07/18 11/08/18 23:59 23:59 23:59 Intake Total 200 / 200 420 / 420 Balance 200 / 200 420 / 420 Laboratory Tests Past 24 Hrs 11/07/18 11/07/18 11/07/18 17:35 17:35 17:35 WBC 6.8 RBC 5.01 Hgb 15.5 Hct 46.1 MCV 92.0 MCH 30.9 MCHC 33.6 RDW 13.4 RDW Differential 44.5 H Plt Count 265 MPV 10.1 Immature Gran % (Auto) 0.100 Neut % (Auto) 55.3 Lymph % (Auto) 30.2 [place] % (Auto) 10.5 H Eos % (Auto) 3.6 Baso % (Auto) 0.3 Absolute Neuts (auto) 3.7 Absolute Lymphs (auto) 2.04 Total Counted Not Reportable Sodium 140 Potassium 3.8 Chloride 107 Carbon Dioxide 26.0 Anion Gap 7 BUN 16 Creatinine 0.92 Estim Creat Clear Calc 100.75 Est GFR (MDRD) Af Amer 110 Est GFR (MDRD) Non-Af 91 BUN/Creatinine Ratio 17.4 Glucose 126 H Hemoglobin A1c Calcium 8.9 Troponin I < 0.015 Triglycerides Cholesterol LDL Cholesterol VLDL Cholesterol HDL Cholesterol Urine Color Urine Clarity Urine pH Ur Specific [place] Urine Protein Urine Glucose (UA) Urine Ketones Urine Occult Blood Urine Nitrite Urine Bilirubin Urine Urobilinogen Ur Leukocyte Esterase Urine RBC Urine WBC Ur Squamous Epith Cells Urine Bacteria Urine Mucus Ethyl Alcohol 7.0 11/07/18 11/08/18 11/08/18 19:00 05:20 05:20 WBC RBC Hgb Hct MCV MCH MCHC RDW RDW Differential Plt Count MPV Immature Gran % (Auto) Neut % (Auto) Lymph % (Auto) [place] % (Auto) Eos % (Auto) Baso % (Auto) Absolute Neuts (auto) Absolute Lymphs (auto) Total Counted Sodium Potassium Chloride Carbon Dioxide Anion Gap BUN Creatinine Estim Creat Clear Calc Est GFR (MDRD) Af Amer Est GFR (MDRD) Non-Af BUN/Creatinine Ratio Glucose Hemoglobin A1c 6.2 Calcium Troponin I Triglycerides 179 Cholesterol 139 LDL Cholesterol 76 VLDL Cholesterol 36 HDL Cholesterol 27 L Urine Color Straw Urine Clarity Clear Urine pH 7.0 Ur Specific [place] 1.010 Urine Protein Negative Urine Glucose (UA) Normal Urine Ketones Negative Urine Occult Blood Negative Urine Nitrite Negative Urine Bilirubin Negative Urine Urobilinogen Normal Ur Leukocyte Esterase Negative Urine RBC 0-5 SEEN Urine WBC 0-5 SEEN Ur Squamous Epith Cells 0 SEEN Urine Bacteria 0 SEEN Urine Mucus 0 SEEN Ethyl Alcohol Discharge Diet: No Restrictions Discharge Activity: Return to Normal Activity Call your doctor if you observe: - - unilateral weakness. difficulty speaking. Home Medications: Medications to take at Discharge Aspirin [Aspirin, Baby] 81 mg PO DAILY@0800 tab.chew 11/08/18 Primary Care Physician: Luis Felipe George MD [Primary Care Provider] - Within 2 Weeks Disposition: Home Minutes spent on discharge:: 35 Patient Condition:: Good Medical Necessity - Tobacco Use Smoking Status: Never smoker Tobacco Use: Non-smoker Meaningful Use Info Meaningful Use Diagnoses (Choose all that apply): None applicable Code Visit OBSV E&M: 25587 Observation care discharge
--- NOTE | 2018-11-08 14:23 | DS.PCM_ITS ---
Discharge Date and Diagnosis - Problem List Patient Problems: Active and Suspected Problems Stroke-like symptoms (Acute) Date of Admission: 11/07/18 Date of Discharge: 11/08/18 - Primary Discharge Diagnosis Active and Suspected Problems Stroke-like symptoms (Acute) - Secondary Discharge Diagnosis Chronic Problems GETACHEW (obstructive sleep apnea) (Chronic) Hospital Course and Treatment Imaging Results: Clinical Impression(s) from Imaging Studies Brain CT 11/07/18 17:17 IMPRESSION: Normal unenhanced CT scan of the brain. Electronically Signed: Alex Gambino MD at 18:04 EST , Service support , Brain MRI 11/08/18 01:12 IMPRESSION: Normal unenhanced MRI of the brain. Electronically Signed: Genia Cardoso MD at 10:29 EST Tel , Service support , Head MRA 11/08/18 01:12 IMPRESSION: Unremarkable MRA of the head Electronically Signed: Genia Cardoso MD at 10:46 EST Tel , Service support , Neck MRA 11/08/18 01:12 IMPRESSION: Unremarkable bilateral cervical carotid and vertebral arteries. Electronically Signed: Genia Cardoso MD at 10:52 EST Tel , Service support , Jaya Ross MD. Neurology. Operations: None Procedures: 2-D Echocardiogram Summary of Care Provided: The patient is a 53 year old M who presents with a myriad of complaints, including stress of the aphasia weakness and confusion. Patient was fasting for work when this occurred. Symptoms did resolve. Patient was evaluated in the emergency room and patient. The neurologic evaluation including MRI of the brain, MRA of the head and neck and echocardiogram. All of which were negative. Patient was seen in consultation by neurology who feels the patient's symptoms were probably related to complex migraine or a conversion disorder. Neurology did recommend continue with aspirin. Patient advised to return if he has any recurrent symptoms. [] Patient Problems: Active and Suspected Problems Stroke-like symptoms (Acute) - Physical Exam Vital Signs Temp Pulse Resp BP Pulse Ox 36.9 C 64 18 154/83 H 95 11/08/18 13:43 11/08/18 13:43 11/08/18 13:43 11/08/18 13:43 11/08/18 13:43 Oxygen Delivery Method Room Air Weight: 108.3 kg Body Mass Index (BMI) 32.3 Intake and Output for Last 24 Hours 11/06/18 11/07/18 11/08/18 23:59 23:59 23:59 Intake Total 200 / 200 420 / 420 Balance 200 / 200 420 / 420 Laboratory Tests Past 24 Hrs 11/07/18 11/07/18 11/07/18 17:35 17:35 17:35 WBC 6.8 RBC 5.01 Hgb 15.5 Hct 46.1 MCV 92.0 MCH 30.9 MCHC 33.6 RDW 13.4 RDW Differential 44.5 H Plt Count 265 MPV 10.1 Immature Gran % (Auto) 0.100 Neut % (Auto) 55.3 Lymph % (Auto) 30.2 [place] % (Auto) 10.5 H Eos % (Auto) 3.6 Baso % (Auto) 0.3 Absolute Neuts (auto) 3.7 Absolute Lymphs (auto) 2.04 Total Counted Not Reportable Sodium 140 Potassium 3.8 Chloride 107 Carbon Dioxide 26.0 Anion Gap 7 BUN 16 Creatinine 0.92 Estim Creat Clear Calc 100.75 Est GFR (MDRD) Af Amer 110 Est GFR (MDRD) Non-Af 91 BUN/Creatinine Ratio 17.4 Glucose 126 H Hemoglobin A1c Calcium 8.9 Troponin I < 0.015 Triglycerides Cholesterol LDL Cholesterol VLDL Cholesterol HDL Cholesterol Urine Color Urine Clarity Urine pH Ur Specific [place] Urine Protein Urine Glucose (UA) Urine Ketones Urine Occult Blood Urine Nitrite Urine Bilirubin Urine Urobilinogen Ur Leukocyte Esterase Urine RBC Urine WBC Ur Squamous Epith Cells Urine Bacteria Urine Mucus Ethyl Alcohol 7.0 11/07/18 11/08/18 11/08/18 19:00 05:20 05:20 WBC RBC Hgb Hct MCV MCH MCHC RDW RDW Differential Plt Count MPV Immature Gran % (Auto) Neut % (Auto) Lymph % (Auto) [place] % (Auto) Eos % (Auto) Baso % (Auto) Absolute Neuts (auto) Absolute Lymphs (auto) Total Counted Sodium Potassium Chloride Carbon Dioxide Anion Gap BUN Creatinine Estim Creat Clear Calc Est GFR (MDRD) Af Amer Est GFR (MDRD) Non-Af BUN/Creatinine Ratio Glucose Hemoglobin A1c 6.2 Calcium Troponin I Triglycerides 179 Cholesterol 139 LDL Cholesterol 76 VLDL Cholesterol 36 HDL Cholesterol 27 L Urine Color Straw Urine Clarity Clear Urine pH 7.0 Ur Specific [place] 1.010 Urine Protein Negative Urine Glucose (UA) Normal Urine Ketones Negative Urine Occult Blood Negative Urine Nitrite Negative Urine Bilirubin Negative Urine Urobilinogen Normal Ur Leukocyte Esterase Negative Urine RBC 0-5 SEEN Urine WBC 0-5 SEEN Ur Squamous Epith Cells 0 SEEN Urine Bacteria 0 SEEN Urine Mucus 0 SEEN Ethyl Alcohol Discharge Diet: No Restrictions Discharge Activity: Return to Normal Activity Call your doctor if you observe: - - unilateral weakness. difficulty speaking. Home Medications: Medications to take at Discharge Aspirin [Aspirin, Baby] 81 mg PO DAILY@0800 tab.chew 11/08/18 Primary Care Physician: Luis Felipe George MD [Primary Care Provider] - Within 2 Weeks Disposition: Home Minutes spent on discharge:: 35 Patient Condition:: Good Medical Necessity - Tobacco Use Smoking Status: Never smoker Tobacco Use: Non-smoker Meaningful Use Info Meaningful Use Diagnoses (Choose all that apply): None applicable Code Visit OBSV E&M: 31081 Observation care discharge
--- NOTE | 2018-11-08 14:45 | CHAPLAIN ---
Type of Pastoral Visit _x__ Initial Visit ___ Follow-up Visit ___ On-call Visit ___ General Patient Visit ___ Spiritual Assessment ___ Family Conference ___ Bereavement ___ Rapid Response ___ Code Blue ___ Other (describe below) Pastoral Care Referral From _x__ Patient ___ Family ___ Nurse ___ Physician ___ [place] ___ Supervising Editor [employer] ___ Other (describe below) Sacrament/Intervention ___ Active listening ___ Anointing ___ Spiritism ___ Bereavement ___ Communion ___ Isela exploration ___ ___ Life review ___ Prayer ___ Reconciliation ___ Sacrament of Sick _x__ Supportive presence ___ Wedding ___ Other (describe below) Pastoral Comments
--- OUTSIDE RECORDS SUMMARY | 2018-12-24 22:30 | XMS RPT_ITS ---
:1965 Author Organization [facility] Care Team Providers Name Role Phone MICHAEL GEORGE Primary Care Unavailable Dawson Ruiz Admitting Unavailable Kevin Card Attending Unavailable Jaya Ross Consulting Unavailable Dawson Ruiz Admitting Unavailable Dawson Ruiz Attending Unavailable MICHAEL GEORGE Primary Care Unavailable Kevin Card Consulting Unavailable Dawson Ruiz Admitting Unavailable Kevin Card Attending Unavailable MICHAEL GEORGE Primary Care Unavailable Kevin Card Consulting Unavailable Singh Lu Attending Unavailable Dawson Ruiz Referring Unavailable PROBLEMS PROBLEMS No Problem Records FoundPROCEDURES PROCEDURES No Procedure Records FoundRESULTS RESULTS CONSULTATION Observed: 11/10/2018 Status: F Source: [place] 10:06 AM [facility] REPOSITORY [facility] Medical Records Department [address] [place] [address] Consultation 11/08/18 1149 MR#: [id number] Acct: [id number] Name: AZEEM MARQUES Rep #: [id number] : 1965 53 From: Jaya Ross MD PCP: Michael George MD Status: DIS MINH Y Location: [place] [address] Reason for Consult Date of Consultation: 11/08/18 Reason for Consultation: aphasia History of Present Illness: The patient is a 53 year old M presented with word finding problems, beginning about 6am yesterday. 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 reports he had fasted the night before for lab testing, which was done then noted difficulty reading at work. went to cafeteria and ate, then improved today but notes he had abnormal language, and reports confusion until at least two this am. reports slurred speech, blurry vision, ringing in ears, difficulty with comprehension. she feels he was swaying and leaning to one side when he walked, to his left. gets up normally at 4am, and reports he was normal until 6am. admits to significant stress due to sons illness over the weekend, still has stress. uses cpap all night, every night for getachew. denies insomnia until two nights ago. reports mild dull headache yesterday, normally doesnt have headache. per admit h AND p:The patient is a 53 year old M with a significant history of obstructive sleep apnea who presented because of expressive aphasia. 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 After the physical he went back to his job however he could not read. Also he felt some clumsiness in using his hands. Also he has difficulty in expressing his thoughts. Because of the symptoms he came to the emergency department. CT head at emergency department was unremarkable. As presentation patient was not hypoglycemic. Past Medical History Past Medical History (Chronic Problems): Chronic Problems GETACHEW (obstructive sleep apnea) (Chronic) Allergies No Known Allergies Allergy (Verified 11/07/18 16:57) Home Medications: Ambulatory Orders Medication Instructions Recorded NK 11/07/18 Surgical History: no surgical history Lives: With Family Smoking Status: Never smoker Tobacco Use: Non-smoker - *Family History Maternal History Items: Cancer - SKIN CANCER Paternal History Items: - - Rheumatoid arthritis Review of Systems Constitutional: Denies: Chills, Fever, Weight Change HEENT: Denies: Head Aches, Sinus Congestion, Sinus Drainage Cardiovascular: Denies: Chest Pain, Palpitations Respiratory: Denies: Cough, Shortness of breath at rest, Sputum production Gastrointestinal: Denies: Abdominal Pain, Nausea, Vomiting Genitourinary: Denies: Dysuria Musculoskeletal: Denies: Joint Pain, Joint Tenderness Skin: Denies: Rash, Wounds Neurological: Reports: Balance problems, Blurred vision, Change in Speech. Denies: Focal weakness, Numbness, Tingling Psychiatric: Reports: Anxiety. Denies: Depression, Homicidal Ideations, Suicidal Ideations Hematologic/ Lymphatic: Denies: Easy Bruising, Easy Bleeding Patient Problems: Active and Suspected Problems Stroke-like symptoms (Acute) - Physical Exam Vital Signs Temp Pulse Resp BP Pulse Ox 37.3 C 63 18 141/93 H 96 11/08/18 10:15 11/08/18 11:10 11/08/18 10:15 11/08/18 10:15 11/08/18 10:15 Oxygen Delivery Method Room Air Weight: 108.3 kg Body Mass Index (BMI) 32.3 Intake and Output for Last 24 Hours Intake Total 200 / 200 200 / 200 Balance 200 / 200 200 / 200 Laboratory Tests Past 24 Hrs WBC 6.8 RBC 5.01 Hgb 15.5 WBC mri reviewed, no acute Current Home Med List Medication Instructions Recorded Confirmed Type NK 11/07/18 11/07/18 History Current Medications Aspirin 81 mg 11/08/18 08:00 11/08/18 10:22 Aspirin, Baby PO 81 mg Assessment/Plan All Active Problems Stroke-like symptoms (Acute) complex migraine vs conversion disorder mri neg ok to dc asa daily continue cpap good compliance dc lipitor if no hypercholesterolemia 11/10/18 1006 <Electronically signed by Jaya Ross MD> Date Jaya Ross MD Cosigner Signature (if applicable): Date CC: Michael George MD; Jaya Ross MD Signed 12 LEAD ELECTROCARDIOGRAM Observed: 11/09/2018 Status: F Source: ERICA 9:20 AM [facility] REPOSITORY [facility] Cardiovascular Services [address] [place] [address] 12 Lead EKG 11/07/18 1731 MR#: [id number] Acct: [id number] Name: AZEEM MARQUES Rep #: [id number] : 1965 53 From: Jackson Delgado MD Attending Dr: Kevin Card DO Status: DIS MINH Ordering Dr: Bran Brown MD Date: 11/07/18 Location: [facility] Sex: M C Admitted: 11/07/18 Test Reason : CONFUSION Blood Pressure : / mmHG Vent. Rate : 065 BPM Atrial Rate : 065 BPM P-R Int : 168 ms QRS Dur : 094 ms QT Int : 402 ms P-R-T Axes : 040 041 049 degrees QTc Int : 418 ms Sinus rhythm with Premature atrial complexes with Aberrant conduction Otherwise normal ECG Confirmed by TOMAS PROCTOR, JACKSON ([id number]), newspaper managing editor CHUNG LUJAN ([id number]) on 11/09/2018 9:20:13 AM Referred By: SL Confirmed By:JACKSON DELGADO MD 11/09/18 0920 Date Jackson Delgado MD CC: Michael George MD; Kevin Card DO; Bran Brown MD Signed DISCHARGE SUMMARY Observed: 11/08/2018 Status: F Source: ERICA 2:23 PM [facility] REPOSITORY [facility] Medical Records Department [address] [place] [address] Discharge Summary 11/08/18 1420 MR#: [id number] Acct: [id number] Name: AZEEM MARQUES Rep #: [id number] : 1965 53 From: Kevin Card DO PCP: Michael George MD Status: ADM MINH Y Location: [place] [address] Discharge Date and Diagnosis - Problem List Patient Problems: Active and Suspected Problems Stroke-like symptoms (Acute) Date of Admission: 11/07/18 Date of Discharge: 11/08/18 - Primary Discharge Diagnosis Active and Suspected Problems Stroke-like symptoms (Acute) - Secondary Discharge Diagnosis Chronic Problems GETACHEW (obstructive sleep apnea) (Chronic) Hospital Course and Treatment Imaging Results: Clinical Impression(s) from Imaging Studies Brain CT 11/07/18 17:17 IMPRESSION: Normal unenhanced CT scan of the brain. Electronically Signed: Alex Gambino MD at 18:04 EST , Service support , Brain MRI 11/08/18 01:12 IMPRESSION: Normal unenhanced MRI of the brain. Electronically Signed: Genia Cardoso MD at 10:29 EST Tel , Service support , Head MRA 11/08/18 01:12 IMPRESSION: Unremarkable MRA of the head Electronically Signed: Genia Cardoso MD at 10:46 EST Tel , Service support , Neck MRA 11/08/18 01:12 IMPRESSION: Unremarkable bilateral cervical carotid and vertebral arteries. Electronically Signed: Genia Cardoso MD at 10:52 EST Tel , Service support , Jaya Ross MD. Neurology. Operations: None Procedures: 2-D Echocardiogram Summary of Care Provided: The patient is a 53 year old M who presents with a myriad of complaints, including stress of the aphasia weakness and confusion. Patient was fasting for work when this occurred. Symptoms did resolve. Patient was evaluated in the emergency room and patient. The neurologic evaluation including MRI of the brain, MRA of the head and neck and echocardiogram. All of which were negative. Patient was seen in consultation by neurology who feels the patient's symptoms were probably related to complex migraine or a conversion disorder. Neurology did recommend continue with aspirin. Patient advised to return if he has any recurrent symptoms. [] Patient Problems: Active and Suspected Problems Stroke-like symptoms (Acute) - Physical Exam Vital Signs Temp Pulse Resp BP Pulse Ox 36.9 C 64 18 154/83 H 95 11/08/18 13:43 11/08/18 13:43 11/08/18 13:43 11/08/18 13:43 11/08/18 13:43 Oxygen Delivery Method Room Air Weight: 108.3 kg Body Mass Index (BMI) 32.3 Intake and Output for Last 24 Hours Intake Total 200 / 200 420 / 420 Balance 200 / 200 420 / 420 Laboratory Tests Past 24 Hrs WBC 6.8 RBC 5.01 Hgb 15.5 WBC Discharge Diet: No Restrictions Discharge Activity: Return to Normal Activity Call your doctor if you observe: - - unilateral weakness. difficulty speaking. Home Medications: Medications to take at Discharge Aspirin [Aspirin, Baby] 81 mg PO DAILY@0800 tab.chew 11/08/18 Primary Care Physician: Michael George MD [Primary Care Provider] - Within 2 Weeks Disposition: Home Minutes spent on discharge:: 35 Patient Condition:: Good Medical Necessity - Tobacco Use Smoking Status: Never smoker Tobacco Use: Non-smoker Meaningful Use Info Meaningful Use Diagnoses (Choose all that apply): None applicable Code Visit OBSV STEPHANI: [id number] Observation care discharge 11/08/18 1423 <Electronically signed by Kevin Card DO> Date Kevin Card DO Cosigner Signature (if applicable): Date CC: Michael George MD; Kevni Card DO Signed DISCHARGE INSTRUCTION Observed: 11/08/2018 Status: F Source: ERICA 2:20 PM [facility] REPOSITORY [facility] Medical Records Department [address] [place] [address] Instructions for Home/Discharge Instructions 11/08/18 1419 MR#: [id number] Acct: [id number] Name: AZEEM MARQUES Rep #: [id number] : 1965 53 From: Kevin Card DO PCP: Michael George MD Status: ADM MINH - Discharge Diagnoses Current Active Problems: Current Active and Chronic Problems GETACHEW (obstructive sleep apnea) (Chronic) Stroke-like symptoms (Acute) You will use the following diet at home:: Cardiac Your food should be the consistency of: Regular Discharge Activity: Return to Normal Activity Call your doctor if you observe: - - unilateral weakness. difficulty speaking. Allergies/Adverse Reactions: Allergies No Known Allergies Allergy (Verified 11/07/18 16:57) Medications to take at Discharge Aspirin [Aspirin, Baby] 81 mg PO DAILY@0800 tab.chew 11/08/18 Primary Care Physician: Michael George MD [Primary Care Provider] - Within 2 Weeks Test Results: Test results from this visit will be discussed in further detail at your follow-up appointment, if applicable. 11/08/18 1420 <Electronically signed by Kevin Card DO> Date Kevin Card DO CC: Michael George MD; Jaya Ross MD ECHOCARDIOGRAM COMPLETE Observed: 11/08/2018 Status: F Source: ERICA 1:27 PM [facility] REPOSITORY [facility] Cardiovascular Services [address] [place] [address] Echo Complete 11/08/18 0929 MR#: [id number] Acct: [id number] Name: AZEEM MARQUES Rep #: [id number] : 1965 53 From: Singh Lu MD Attending Dr: Kevin Card DO Status: ADM MINH Ordering Dr: Dawson Ruiz MD Date: 11/08/18 Location: [facility] Sex: M C Admitted: 11/07/18 Reason For Study: TIA/CVA Procedure This was a 2D Doppler, Color Flow transthoracic echocardiogram. Exam performed portable in patient room. Left Ventricle Normal size and thickness. The estimated ejection fraction is 65 %. Stage 1 diastolic dysfunction. No regional wall motion abnormalities noted. Right Ventricle Normal size and thickness. Normal systolic function. Atria Normal left atrium. Normal right atrium. Normal atrial septum. Bubble contrast study negative for right to left interatrial shunt. Mitral Valve The mitral valve is structurally normal. No prolapse or stenosis seen. Tricuspid Valve Normal tricuspid valve. Unable to estimate RV systolic pressure due to inadequate jet, pulmonary artery pressure probably normal. Aortic Valve Normal aortic valve. Trisinus/trileaflet aortic valve. Pulmonic Valve Normal pulmonic valve. Great Vessels Normal aortic root. Normal arch. Normal inferior vena cava. Inferior vena cava collapse with sniff. Pericardium/Pleural No pericardial effusion. Medication Performed a rapid injection of agitated mix of 9 cc saline and 1cc air to assess for atrial septal defect. MMode/2D Measurements AND Calculations LVIDd: 4.7 cm IVSd: 1.3 cm Ao root diam: 3.0 cm LVIDs: 2.9 cm LVPWd: 1.2 cm RVDd: 3.5 cm FS: 38.7 % LAV(MOD-bp): 43.1 ml LA A4 area: 17.0 cm2 LA dimension(2D): 3.5 cm LAV(MOD-bp) Indexed: 18.8 ml/m2 LAV(MOD-sp2): 39.4 ml LAV(MOD-sp4): 45.4 ml RA A4 area: 17.2 cm2 Doppler Measurements AND Calculations MV E max nic: 68.4 cm/sec Lat Peak E' Nic: 7.3 cm/sec Med Peak E' Nic: 5.2 cm/sec MV A max nic: 90.1 cm/sec E/E' lat: 9.4 E/E' med: 13.1 MV E/A: 0.76 Ao V2 max: 135.1 cm/sec LV V1 max: 98.2 cm/sec PA V2 max: 93.2 cm/sec Ao max P.3 mmHg LV V1 max P.9 mmHg Interpretation Summary The estimated ejection fraction is 65 %. Stage 1 diastolic dysfunction. Bubble contrast study negative for right to left interatrial shunt. Unable to estimate RV systolic pressure due to inadequate jet, pulmonary artery pressure probably normal. There is no comparison study available. Ordering Physician: Dawson Ruiz Referring Physician: Michael George Performed By: Betzaida Dorantes RDCS 11/08/18 1326 Date Singh Lu MD CC: Michael George MD; Kevin Card DO; Dawson Ruiz MD Date Dictated: 11/08/18928 Date Transcribed: 11/08/18 1326 Steam Crane Operator: Signed HISTORY AND PHYSICAL Observed: 11/08/2018 Status: F Source: ERICA EXAM 8:52 AM [facility] REPOSITORY [facility] Medical Records Department [address] [place] [address] History and Physical 11/07/182107 MR#: [id number] Acct: [id number] Name: AZEEM MARQUES Rep #: [id number] : 1965 53 From: Dawson Ruiz MD PCP: Michael George MD Status: ADM MINH Y Location: [place] [address] Problem List (1) GETACEHW (obstructive sleep apnea) Status: Chronic (2) Stroke-like symptoms Status: Acute History of Present Illness Date of Admission: 11/07/18 Chief Complaint: expressive aphasia The patient is a 53 year old M with a significant history of obstructive sleep apnea who presented because of expressive aphasia. 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 After the physical he went back to his job however he could not read. Also he felt some clumsiness in using his hands. Also he has difficulty in expressing his thoughts. Because of the symptoms he came to the emergency department. CT head at emergency department was unremarkable. As presentation patient was not hypoglycemic. Past Medical History Past Medical History (Chronic Problems): Chronic Problems GETACHEW (obstructive sleep apnea) (Chronic) Allergies No Known Allergies Allergy (Verified 11/07/18 16:57) Home Medications: Ambulatory Orders Medication Instructions Recorded NK 11/07/18 Surgical History: no surgical history Lives: With Family Smoking Status: Never smoker Tobacco Use: Non-smoker - *Family History Maternal History Items: Cancer - SKIN CANCER Paternal History Items: - - Rheumatoid arthritis Review of Systems Constitutional: Denies: Chills, Fever, Weight Change HEENT: Denies: Head Aches, Sinus Congestion, Sinus Drainage Cardiovascular: Denies: Chest Pain, Palpitations Respiratory: Denies: Cough, Shortness of breath at rest, Sputum production Gastrointestinal: Denies: Abdominal Pain, Nausea, Vomiting Genitourinary: Denies: Dysuria Musculoskeletal: Denies: Joint Pain, Joint Tenderness Skin: Denies: Rash, Wounds Neurological: Reports: Change in Speech, Confusion. Denies: Focal weakness, Numbness, Tingling Psychiatric: Denies: Anxiety, Depression, Homicidal Ideations, Suicidal Ideations Hematologic/ Lymphatic: Denies: Easy Bruising, Easy Bleeding VTE Information - Inpt Only VTE Present on Admission: No VTE Mechan Device Prophylaxis: None VTE Pharm Prophylaxis ordered?: Yes Patient Problems: Active and Suspected Problems Stroke-like symptoms (Acute) - Physical Exam General: Alert, Oriented x3, Cooperative HEENT: Atraumatic, PERRLA, EOMI, Normocephalic Neck: Supple, No JVD, Negative Carotid Bruits Lungs: Clear to auscultation, Normal air movement Cardiovascular: Regular rate, No murmurs Abdomen: Bowel Sounds Present, Soft, Non Tender Extremities: No edema, Capillary Refill Less than 3 Seconds Skin: No rashes, No breakdown Musculoskeletal: No Tenderness to Palpation of Joints or Extremities Neurological: Motor Exam 5/5 strength throughout, Muscle tone normal, - - Dull sensation on the left arm. Mild expressive aphasia noted. Psych/Mental Status: Normal Affect, Appropriate Vital Signs Temp Pulse Resp BP Pulse Ox 98.7 F 63 18 172/107 H 98 11/07/18 16:54 11/07/18 19:07 11/07/18 19:07 11/07/18 19:07 11/07/18 19:07 Oxygen Delivery Method Room Air Weight: 108.136 kg Body Mass Index (BMI) 32.3 Laboratory Tests Past 24 Hrs WBC 6.8 RBC 5.01 Hgb 15.5 Hct 46.1 MCV 92.0 MCH 30.9 MCHC 33.6 RDW 13.4 RDW Differential 44.5 H WBC RBC Hgb Hct MCV MCH MCHC RDW RDW Differential Plt Count MPV Immature Gran % (Auto) Neut % (Auto) Lymph % (Auto) [place] % (Auto) Assessment/Plan All Active Problems Stroke-like symptoms (Acute) The patient is a 53 year old M with a significant history of obstructive sleep apnea who presented because of expressive aphasia; and incoordination of his upper extremities concerning for strokelike symptoms. Strokelike symptoms At presentation patient was not hypoglycemic NINDS NIH Scale was 0 at emergency department. At my evaluation NINDS NIH Scale was 2 because sensation was more sharp on the right side; and patient has some mild expressive aphasia.. CT of the head independently reviewed showed no acute brain or head pathology. -Check Hba1c, Lipid level Physical therapy, occupational therapy and speech therapy to work with patient. N.p.o. until bedside swallow eval. Patient passed swallow eval and cardiac diet was ordered. Daily aspirin. High intensity statin ordered Lipid profile and A1c ordered. Permissive hypertension. Control blood pressure with labetalol for systolic blood pressure of more than 220 or diastolic blood pressure of more than 120. -Permissive HTN for 24 hrs, terminal block assembler goal BP < 120/80 mmHg and goal Hba1c < 7% MRI/MRA of head; brain; and neck. Echocardiogram ordered. Elevated blood pressure without diagnosis of hypertension. Patient denies any previous history of hypertension. His elevated blood pressure could be due to autonomic effects to perfuse ischemic penumbra. Highest systolic blood pressure on admission was 176; diastolic blood pressure is 107. Permissive hypertension as above. After 24-48 hours consider blood pressure control if her blood pressure remains elevated with ith a terminal block assembler goal BP < 120/80 mmHg Obstructive sleep apnea CPAP ordered DVT prophylaxis Subcutaneous heparin. Code Visit OBSV E AND M: [id number] Initial observation care L3 11/08/18 0852 <Electronically signed by Dawson Ruiz MD> Date Dawson Ruiz MD Cosigner Signature: Date (if applicable) CC: Michael George MD; Dawson Ruiz MD Signed LIPID PROFILE Collected: 11/08/2018 Status: F Source: ERICA 5:20 AM [facility] REPOSITORY TYPE CODE TESTS RESULT OUT OF RANGE REFERENCE UNITS LAB L501.4900 200 mg/dL Normal CHOL 139 Result Comment: <200 mg/dL Desirable 200-240 mg/dL Borderline >240 mg/dL High Risk LAB L501.5000 mg/dL Normal TRIG 179 Result Comment: The drugs N-Acetylcysteine and Metamizole may falsely depress this assay. Serum Triglycerides Reference Interval Normal <150 mg/dL Borderline high 150 - 199 mg/dL High 200 - 499 mg/dL Very High > or = 500 mg/dL LAB L501.6400 mg/dL Low HDL 27 Result Comment: The drugs N-Acetylcysteine and Metamizole may falsely depress this assay. Reference Range HDL <40 mg/dL Low HDL Cholesterol HDL >or= 60 mg/dL High HDL Cholesterol LAB L501.6500 0-130 mg/dL Normal LDL 76 LAB L501.6600 5-40 mg/dL Normal VLDL 36 Performed By: #### L500.4100 #### [facility] [address] [place], [address] HEMOGLOBIN A1C Collected: 11/08/2018 Status: F Source: [place] 5:20 AM [facility] REPOSITORY TYPE CODE TESTS RESULT OUT OF RANGE REFERENCE UNITS LAB L501.9985 4.2-6.3 % Normal HGB A1C 6.2 Performed By: #### L501.9985 #### [facility] [address] [place], [address] BRAIN WITHOUT Observed: 11/08/2018 Status: F Source: [place] CONTRAST 1:13 AM [facility] REPOSITORY [facility] Imaging Services [address] [place] [address] Brain without Contrast MR#: [id number] Acct: [id number] Name: AZEEM MARQUES Rep #: [id number] : 1965 M 53 From: Genia Cardoso PCP: Michael George MD Status: ADM MINH Study: Brain without Contrast Date of Exam: 11/08/18 Exam# [id number] Ordering Dr: Dawson Ruiz MD STUDY: MRI BRAIN WITHOUT CONTRAST REASON FOR EXAM: Male, 53 years old. cva, slurred speech, expressive aphasia, blurred vision TECHNIQUE: Standardized multiplanar fat and water weighted pulse sequences were obtained. COMPARISON: 11/07/2018 FINDINGS: Normal size of the ventricles and extra-axial spaces for the patient's age. Normal white matter tracts of the supratentorial brain. Normal bilateral basal ganglia. Normal thalami. There is no extra-axial fluid accumulation. Normal flow voids within the major intracranial circulation suggesting patency by spin echo criteria. Normal sella turcica, pituitary gland, infundibular stalk, optic chiasm and hypothalamus. Normal tectal plate and pineal gland. Normal midbrain, thomas and medulla. Normal cerebellum. Normal basal cisterns. Normal bilateral temporal bones. Normal bilateral internal auditory canals. No demonstrated orbital abnormality, within the constraints of a routine brain study. Normal visualized paranasal sinuses. Normal calvarium and skull base. Normal visualized soft tissue structures. Normal visualized upper cervical spine. MRI/Brain without Contrast IMPRESSION: Normal unenhanced MRI of the brain. Electronically Signed: Genia Cardoso MD at 10:29 EST Tel , Service support , CC: Michael George MD; Dawson Ruiz MD Steam Crane Operator: Signed MRA HEAD ONLY WITHOUT Observed: 11/08/2018 Status: F Source: [place] CONTRAST 1:13 AM [facility] REPOSITORY [facility] Imaging Services [address] [place] [address] MRA Head ONLY without Contrast MR#: [id number] Acct: [id number] Name: AZEEM MARQUES Rep #: [id number] : 1965 M 53 From: Genia Cardoso PCP: Michael George MD Status: ADM MINH Study: MRA Head ONLY without Contrast Date of Exam: 11/08/18 Exam# [id number] Ordering Dr: Dawson Ruiz MD STUDY: MRA OF THE HEAD WITHOUT CONTRAST REASON FOR EXAM: Male, 53 years old. cva, slurred speech, expressive aphasia, blurred vision TECHNIQUE: 3-D [id number] (TOF) imaging was performed with MIPs. The study was performed unenhanced. COMPARISON: None. FINDINGS: Normal bilateral petrous carotid arteries. Normal right cavernous carotid artery with a normal supraclinoid bifurcation. Normal left cavernous carotid artery with a normal supraclinoid bifurcation. There is non-visualization of the right A1 segment of the anterior cerebral arteries consistent with either aplastic development or an occlusion. Normal left A1 segments of the anterior cerebral artery. Normal intact anterior communicating artery (ACOM). Normal bilateral A2 segments of the anterior cerebral arteries. Normal right M1 and M2 segments of the middle cerebral arteries, with a normal M1 bifurcation. Normal left M1 and M2 segments of the middle cerebral arteries, with a normal M1 bifurcation. 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 Normal left posterior communicating artery (PCOM). There is a small atretic right vertebral artery with a dominant left vertebral artery. Normal basilar artery with a normal basilar bifurcation. The visualized bilateral superior cerebellar (SCA) arteries are normal. Normal bilateral posterior cerebral arteries. There is no demonstrated aneurysm of the [place]. There is no major vessel occlusion or hemodynamically significant stenosis. There is no demonstrated abnormality of the visualized brain. MRI/MRA Head ONLY without Contrast IMPRESSION: Unremarkable MRA of the head Electronically Signed: Genia Cardoso MD at 10:46 EST Tel , Service support , CC: Michael George MD; Dawson Ruiz MD Steam Crane Operator: Signed MRA NECK WITH AND W/O Observed: 11/08/2018 Status: F Source: [place] CONTRAST 1:13 AM [facility] REPOSITORY [facility] Imaging Services [address] [place] [address] MRA Neck WITH and W/O Contrast MR#: [id number] Acct: [id number] Name: AZEEM MARQUES Rep #: [id number] : 1965 M 53 From: Genia Cardoso PCP: Michael George MD Status: ADM MINH Study: MRA Neck WITH and W/O Contrast Date of Exam: 11/08/18 Exam# [id number] Ordering Dr: Dawson Ruiz MD STUDY: MRA NECK WITH AND WITHOUT CONTRAST REASON FOR EXAM: Male, 53 years old. cva, slurred speech, expressive aphasia, blurred vision. TECHNIQUE: 3-D pxuq-hm-mrtxny (TOF) imaging was performed in an 1.5 T MRI scanner. 10 ml of Gadavist was administered for the contrast enhanced images. COMPARISON: None. FINDINGS: RIGHT CAROTID ARTERIES: Normal right common carotid artery (CCA). Normal right common carotid bulb. Normal origin of the right internal carotid (ICA) artery without a hemodynamically significant stenosis. Normal visualized cervical portion of the right internal carotid artery. Normal origin of the right external carotid artery (ECA). LEFT CAROTID ARTERIES: Normal left common carotid artery (CCA). Normal left common carotid bulb. Normal origin of the left internal carotid (ICA) artery without a hemodynamically significant stenosis. Normal visualized cervical portion of the left internal carotid artery. Normal origin of the left external carotid artery (ECA). VERTEBRAL ARTERIES: There is antegrade flow within the bilateral vertebral arteries with a small right vertebral artery, and a dominant left vertebral artery. MRI/MRA Neck WITH and W/O Contrast IMPRESSION: Unremarkable bilateral cervical carotid and vertebral arteries. Electronically Signed: Genia Cardoso MD at 10:52 EST Tel , Service support , CC: Michael George MD; [place] Ruiz MD Steam Crane Operator: Signed EMERGENCY DEPARTMENT Observed: 11/08/2018 Status: F Source: [place] SUMMARY 1:04 AM [facility] REPOSITORY [facility] Medical Records Department [address] [place] [address] Emergency Department Summary 11/08/18 0023 MR#: [id number] Acct: [id number] Name: AZEEM MARQUES Rep #: [id number] : 1965 53 From: Bran Brown MD PCP: Michael George MD Status: ADM [facility] - ER Visit Summary Date of Service: 11/08/18 Chief Complaint: Confusion History of Present Illness: The patient is a [address] Antonio mark. He reports that today at work he had an episode with slurred words, inability to read, he can comprehend a conversation and had an expressive aphasia, and decreased dexterity with his left hand. He reports that great deal of this is back to normal. He reports that he still feels mildly confused and is having word searching. Also continues to have blurred vision. He denies a headache. No vertigo. No numbness. Physical Examination: Vitals: Stable. Afebrile. General: Well-nourished and well-developed. Head: Normocephalic atraumatic. Neck: Supple, no lymphadenopathy. No JVD. Nontender. Cardiovascular: Regular rate and rhythm. No murmurs. Respiratory: No respiratory distress. Clear to auscultation bilaterally. Abdominal: Soft, nontender, nondistended, normal bowel sounds. No guarding, rebound, or peritoneal signs. Back: Nontender. Extremities: Nontender, no edema. Skin: Normal color, no rash. Neurologic: Alert and oriented 3. Cranial nerves II through XII are intact. Normal strength and sensation. Psych: Normal affect. Test Results: EKG is sinus at [address] changes. Troponin is negative. UA is normal. Chem-7 is more for glucose 126. CBC is more for monocytes of 11. Blood alcohol level 0. CT brain shows no acute disease. Emergency Department Course and Treatment: Patient's NIH scale is 0. He is not a TPA candidate. However, I am concerned that he may have had a stroke. Treatment Plan: Patient was discussed with Dr. Ruiz. He will be admitted to the hospital for further evaluation and treatment. Disposition: Admitted in stable condition. Impression: 1. TIA. This note was generated with Amer[employer] software. It may contain incorrect words, spelling, and punctuation that were not noted in review of the chart prior to signing ED Disposition - Plan for ED Patient: Disposition: Acute Care Hospital [facility] Chief Complaint: Confusion What to do if you have Problems For any increased pain, shortness of breath, bleeding, nausea or vomiting, chest pain, or any unexpected problems, contact your Primary Care Provider. Call [facility] ([phone]) or report to the closest Emergency Room. Call 911 if necessary. 11/08/18 0104 <Electronically signed by Bran Brown MD> Date Bran Brown MD Cosigner Signature (If Indicated): Date CC: Michael George MD URINALYSIS, COMPLETE Collected: 11/07/2018 Status: F Source: ERICA 7:00 PM [facility] REPOSITORY Order Comment: How was Urine Obtained? CLEAN CATCH TYPE CODE TESTS RESULT OUT OF RANGE REFERENCE UNITS LAB L400.3000 Yellow COLOR Normal Straw LAB L400.3050 Clear Normal CLARITY Clear LAB L400.3200 Normal mg/dl Normal GLUCOSE, UR Normal LAB L400.3300 Negative mg/dL Normal BILIRUBIN URINE Negative LAB L400.3400 Negative mg/dl Normal KETONE UR Negative LAB L400.3465 1.002-1.030 Normal SP.GR. DIPSTX 1.010 LAB L400.3550 5.0 - 8.0 pH UR Normal 7.0 LAB L400.3600 Negative mg/dl PROT Normal DIPSTX Negative LAB L400.3700 Normal mg/dl Normal UROBILI Normal LAB L400.3750 Negative Normal NITRITE UR Negative LAB L400.3780 Negative /ul Normal OCCULT BLOOD-UR Negative LAB L400.3800 Negative /ul LEUK Normal ESTERASE Negative LAB L400.4050 0-5 /hpf WBC Normal 0-5 SEEN LAB L400.4100 0-5 /hpf Normal RBC-UA 0-5 SEEN LAB L400.4150 0-5 /hpf SQUAM 0 Normal EPI SEEN LAB L400.4300 None Seen /hpf 0 Normal BACTERIA SEEN LAB L400.4350 <or=2+ /hpf 0 Normal MUCUS, URINE SEEN Performed By: #### L400.0001 #### [facility] [address] [place], [place], [address] BASIC METABOLIC Collected: 11/07/2018 Status: F Source: [place] PROFILE (BMP) 5:35 PM [facility] REPOSITORY TYPE CODE TESTS RESULT OUT OF RANGE REFERENCE UNITS LAB L501.0100 74-106 mg/dL High GLU 126 Result Comment: Fasting Glucose result greater than or equal to 126 mg/dL suggests DIABETES MELLITUS per A.D.A. criteria. Please note revised GLUCOSE reference range effective 2017. LAB L501.1000 7-18 mg/dL Normal BUN 16 LAB L501.1100 0.70-1.30 mg/dL Normal CREAT,SERUM 0.92 Result Comment: The validity of the calculated GFR AND GFRAA in patients over 70 years has not been determined. Clinical correlation is essential. LAB L501.1110 >60 mL/min Normal EST GFR 91 Result Comment: Non- GFR Calc LAB L501.1115 >60 mL/min Normal EST GFR - AA 110 Result Comment: GFR Calc LAB L501.1255 ml/min Normal Estimated CRCL 100.75 LAB L501.1300 10-20 RATIO BUN/CRE Normal 17.4 LAB L501.2200 8.5-10 mg/dL .1 CA Normal 8.9 LAB L501.5300 136-14 mmol/L 5 NA Normal 140 LAB L501.5600 3.5-5. mmol/L 1 K Normal 3.8 Result Comment: Slight Hemolysis, Result may be falsely increased. LAB L501.5900 98-107 mmol/L Normal CL 107 LAB L501.6100 21.0-32.0 mmol/L Normal CO2 26.0 LAB L501.6200 5-15 Normal 7 GAP Performed By: #### L500.2500, L501.4010 #### [facility] [address] [place], [address] TROPONIN-I Collected: 11/07/2018 Status: F Source: [place] 5:35 PM [facility] REPOS[facility] TYPE CODE TESTS RESULT OUT OF RANGE REFERENCE UNITS LAB L501.4010 <0.045 ng/mL Normal < 0.015 TROPONIN-I Result Comment: TROPONIN-I EXPECTED VALUES <0.045 Negative 0.045 - 0.590 Consistent with Cardiac Damage > OR = 0.600 Critical Value Not every elevated troponin is indicative of NM. These values should be used with clinical judgement in examining the patient's clinical picture for diagnosis. To establish a diagnosis of NM versus myocardial injury, there must be a demonstrated rise and/or fall in the troponin values, in addition to ischemic symptoms, EKG changes, new regional wall motion abnormality, and/or angiographical evidence. PLEASE NOTE: REFERENCE RANGES EDITED 18 Performed By: #### L500.2500, L501.4010 #### [facility] [address] [place], [address] CBC W/DIFF, AUTOMATED Collected: 11/07/2018 Status: F Source: [place] 5:35 PM [facility] REPOS[facility] TYPE CODE TESTS RESULT OUT OF RANGE REFERENCE UNITS LAB L100.1000 4.4-11.0 K/mm3 Normal WBC 6.8 LAB L100.1200 4.6-6.2 M/mm3 Normal RBC 5.01 LAB L100.1300 13.0-16.5 g/dl Normal HGB 15.5 LAB L100.1400 40-54 % Normal HCT 46.1 LAB L100.1500 80-94 fL Normal MCV 92.0 LAB L100.1600 27.0-32.0 pg Normal MCH 30.9 LAB L100.1700 32-36 g/gl Normal MCHC 33.6 LAB L100.1810 11.6-14.6 % Normal RDW CV 13.4 LAB L100.1820 35.1-43.9 fl High RDW SD 44.5 LAB L100.1900 150-450 K/mm3 Normal PLT 265 LAB L100.2000 6.2-12.0 fl Normal MPV 10.1 LAB L100.2100 47-70 % Normal NEUT% 55.3 LAB L100.2200 19-41 % Normal LY% 30.2 LAB L100.2300 0-10 % High MONO% 10.5 LAB L100.2400 0-5 % Normal EO% 3.6 LAB L100.2500 0-1 % Normal BASO% 0.3 LAB L100.2550 0.0-0.9 % Normal IM GRAN % 0.100 Result Comment: IG% - Immature Granulocytes (promyelocytes, myelocytes and metamyelocytes) > 1% indicates that a LEFT SHIFT is Present. LAB L100.2620 2.0-7.7 X10 3/uL Normal Absolute Neut 3.7 LAB L100.2720 0.83-4.51 X10 3/ul Normal Absolute Lymph 2.04 Performed By: #### L100.0100 #### [facility] [address] [place], [address] ALCOHOL, BLOOD Collected: 11/07/2018 Status: F Source: [place] (MEDICAL)-SERUM 5:35 PM [facility] RE[facility] TYPE CODE TESTS RESULT OUT OF RANGE REFERENCE UNITS LAB L501.9100 mg/dL Normal SERUM 7.0 ETOH Result Comment: The serum:whole blood ethanol ratio is approximately 1.14 and varies slightly with hematocrit. Medical Alcohol reference interval and critical value in non-tolerant individuals; 50 - 100 Impairment 100 Intoxication 100 - 250 Severe Poisoning 250 - 400 Deep/possible fatal coma Performed By: #### L501.9100 #### [facility] [address] [place], [address] BRAIN/HEAD WITHOUT Observed: 11/07/2018 Status: F Source: [place] CONTRAST 5:19 PM [facility] RE[facility] Imaging Services [address] [place] [address] Brain/Head without Contrast MR#: [id number] Acct: [id number] Name: AZEEM MARQUES Garry Rep #: [id number] : 1965 M 53 From: Moises Gambino MD PCP: Michael George MD Status: REG ER Study: Brain/Head without Contrast Date of Exam: 11/07/18 Exam# [id number] Ordering Dr: Bran Brown MD STUDY: CT BRAIN WITHOUT CONTRAST REASON FOR EXAM: Male, 53 years old. Expressive aphasia since 9:00 AM. RADIATION DOSAGE (If Supplied By Facility): CTDIvol = ( 44.99 ) mGy, DLP = ( 762.36 ) mGycm TECHNIQUE: Transaxial CT imaging of the brain was performed without administration of intravenous contrast material. Individualized dose optimization techniques were used for this CT. COMPARISON: None. FINDINGS: Normal soft tissue structures. Normal calvarium. Normal size ventricles and extra-axial spaces for the patient's age. Normal white matter tracts of the cerebral hemispheres. Normal basal ganglia and thalami. Normal brainstem. Normal cerebellum. There is no intracranial hemorrhage. There are no findings of an acute ischemic infarction. Normal visualized paranasal sinuses. CT/Brain/Head without Contrast IMPRESSION: Normal unenhanced CT scan of the brain. Electronically Signed: Alex Gambino MD at 18:04 EST , Service support , CC: Michael George MD; Bran Brown MD Steam Crane Operator: Signed ALLERGIES ALLERGIES DATE TYPE / CODE NAME / CODE REACTION SEVERITY SOURCE 11/07/2018 Drug No Known Unknown [facility] Allergy/4160 Allergies/F00 [facility] 13846(SNOMED [id number](RXNOR Repository CT) M) ENCOUNTERS ENCOUNTERS ADMIT/DISCHARGE ACCOUNT ADMITTING ENCOUNTER LOCATION SOURCE NUMBER CLASS 11/08/2018 [id number] Ambulatory BMSBuilding:W Erica 6 [facility] Repository 11/07/2018/ [id number] [place], Ambulatory Erica [place] 8 0 [facility] ([place] ing:PCURoom: Repository [id number]: 1 11/07/2018 [id number] [facility] BMSBuilding:B [place] 8 [place] Repository 11/07/2018 [id number] [facility] Ambulatory BMSBuilding:B [place] 5 [place] [facility] Repository PAYERS PAYERS ENCOUNTER GUARANTOR PAYER SUBSCRIBER SOURCE 11/08/2018 AZEEM ROBLES Primary AZEEM SPENCER Insurance:ANTHEMPolic DONBRODYDOB: [place] Number: [id number] [address]Xhi: [id number] Repository Date:[id number] [address] () [id number] ALFRED [address]VG: 11/08/2018 Secondary NOT GIVENUNK [place] Insurance:SELF PAY [facility] Number: Effective Repository Date:2018-11-08 11/07/2018 AZEEM L DONLEYPO Primary AZEEM L Erica BOX Insurance:ANTHEMPolic DONLEYDOB: [place] [address], [place] Number: [id number] View Regional Medical Center [address]Aqs: [id number] Repository Date:[id number] [address]OX () [address], [place] [address]PU: 11/07/2018 Secondary NOT GIVENUNK [place] Insurance:SELF PAY [facility] Number: Effective Repository Date:2018-11-07 11/07/2018 AZEEM L DONLEYPO Primary AZEEM L Erica B[address] Insurance:ANTHEMPolic DONLEYDOB: [place] [address], [place] Number: [id number] View [facility] [address]Wte: [id number] Repository Date:[id number] [address] () [address], [place] [address]XL: 11/07/2018 Secondary NOT GIVENUNK Erica Insurance:SELF PAY [facility] Number: Effective Repository Date:2018-11-07 11/07/2018 AZEEM L DONLEYPO Primary AZEEM L Erica B[address] Insurance:ANTHEMPolic DONLEYDOB: [place] [address], [place] Number: [id number] View Regional Medical Center [address]Otp: [id number] Repository Date:[id number] [address] () [address], [place] [address]AM: 11/07/2018 Secondary NOT GIVENUNK [place] Insurance:SELF PAY [facility] Number: Effective Repository Date:2018-11-07
== END 2018-11-08 14:20 | disposition home or self-care (01) ==
LOC: ED 17:43 → PCU 21:31
PROVIDERS: Admitting Provider Hospitalist; Emergency Provider Emergency Medicine; Family Provider Family Medicine; PCP Family Medicine
DX: R47.01 Aphasia (principal); R53.1 Weakness; R41.0 Disorientation, unspecified; G47.33 Obstructive sleep apnea (adult) (pediatric); R29.702 NIHSS score 2; R03.0 Elevated blood-pressure reading, without diagnosis of hypertension; H53.8 Other visual disturbances
CPT/HCPCS: 36415; 70450; 70544; 70549; 70551; 80048; 80061; 80320; 81001; 83036; 84484; 85025; 92523; 93005; 93306; 94660; 96360; 96361; 96372; 97161; 97166; 97802; 99218; 99283; J7030; J7040; A4216; G0378; G0480

== ENCOUNTER 2019-04-19 09:19 | Outpatient (RCR) | payer OTHER, SELFPAY ==
[2018-11-08 00:53] VITALS: BMI 32.3
--- NOTE | 2019-04-19 16:14 | HP.SP.AD ---
History - History Date of Eval: 04/19/19 Previous speech therapy: No Other Relevant Medical History/Diagnoses/Surgery: Pt to [facility] ED 11/07/2018 with stroke like symptoms (left facial droop/dysarthria, left UE weakness/numbness, change in mental status), however, CT and MRI of brain found all structures WNL with no acute infarcts. Head and neck MRA WNL. Pt diagnosed at the time with complex migraine. Pt and report some symptoms took >60 days to reach baseline following episode. Pt is now having cognitive impairments (attention, STM, reading/writing difficulties, etc...) that fluctuate throughout the day/across days. Have found an association with blood pressure spikes. Pt is being followed by neurology. Underwent an EEG on this date to rule out seizures with results currently pending. Pt does have sleep apnea and has been on a C-Pap for 14 years. Additionally, pt has baseline dyslexia. Smoking Status: Never smoker Hx Smoking: No Hx Tobacco Use: No Hx Smoking Exposure: Yes - Pain Is pain an issue with your current prescribed condition?: No - Personal Patients Living Arrangements: With Significant Other Patient Allergies - Allergies Allergies No Known Allergies Allergy (Verified 11/07/18 16:57) CLQT - CLQT CLQT Administered: Yes CLQT: Cognitive Linguistic Quick Test (CLQT) is a criterion - referenced assessment designed for adults between the ages of 18 and 89 with known or suspected neurological dysfuntions. The CLQT is to assess strength and weaknesses in five cognitive domains. Severity ratings are within normal limits, mild, moderate, severe deficits. The subtests are as follows: Date: 04/19/19 - CLQT Comments Comments The CLQT was initiated on this date but unable to be fully completed due to time constraints (pt was over 20 mins late to this evaluation due to EEG earlier this date). The following subtest scores were obtained: Personal Facts: 8 Criterion Cut Score (CCS): 8. Symbol Cancellation: 12 CCS: 11. Confrontation Namin CCS:10. Clock Drawin CCS: 12. Therefore, the patient scored WNL on all administered subtests on this date for his age. However, it should be noted that the patient presents with overall decreased processing speed, conversational anomia, and observed difficulties with planning and STM, though the patient independently used all available supports to effectively complete tasks. The patient and his do report these issues affecting his performance both at home and at work, with the patient reporting withdrawing from conversation in order to reduce workload/stress with associated impairments. Plan - Plan Plan: Skilled speech-language therapy is thereby warranted for continued informal and standardized assessment and treatment of cognitive-linguistic functioning in order for the patient to achieve his highest level of safe, independent functioning across home, work, and social environments. - Recommendations Treatment Warranted: Yes - Frequency Frequency: 1x/Week Duration: 4-6 Months - Prognosis Prognosis: Good - Goals that are Established: Determination:: Goals will be added/modified as deemed necessary and appropriate. Therapy will be discontinued when results of re-evaluation indicate therapy is no longer needed or lack of progress has been documented. - Goal #1-5 Goal #1: The pt will independently utilize targeted attention and short term memory strategies to complete memory tasks of increasing complexity with 90% accuracy in 3/4 consecutive sessions. Goal #2: The pt will independently utilize targeted executive functioning strategies to effectively complete functional life tasks with 90% accuracy in 3/4 consecutive sessions. Goal #3: The pt will independently utilize targeted anomia strategies to complete word-finding tasks of increasing complexity with 90% accuracy in 3/4 consecutive sessions. Goal #4: The pt will complete functional writing tasks without spelling or transposition errors in a reasonable amount of time as judged by the OUTSIDE COLLECTOR with 90% accuracy in 3/4 consecutive sessions. Education - Patient Instruction Patient Education: Diagnosis, Treatment Plan, Goals
--- NOTE | 2019-04-26 11:23 | HP.SP.DC ---
ST Discharge Summary - Discharged: Discharge: Jacob Mcconnell is discharged from outpatient speech-language therapy effective 04/26/19. Jacob attended his initial evaluation on 04/19/19 with therapy being recommended at that time for mild cognitive-linguistic deficits. Please see full evaluation for more information. The patient did not attend any therapy sessions and has now opted to be discharged until his insurance deductible has been met in 2018. Please reconsult as warranted.
--- NOTE | 2019-04-26 11:40 | EEG_ITS ---
- Electroencephalogram This is an 18 channel EEG performed on this 54-year-old male with a history of seizures. The test is performed utilizing the International 10-20 electrode placement protocol as well as photic stimulation and hyperventilation. Background activity is 8 to 10 Hz symmetrically in the posterior leads which attenuates with eye-opening. The patient remained awake throughout the recording. Hyperventilation is performed for 3 minutes with good effort with no lateralizing or epileptiform changes and the post hyperventilatory phase is unre markable. The patient remained awake throughout the recording without lateralizing or epileptiform changes and photic stimulation generates a normal symmetric driving response in the posterior leads. EKG rhythm strip monitoring is normal sinus rhythm throughout the recording. Impression: Normal awake electroencephalogram
== END 2019-04-19 19:00 | disposition home or self-care (01) ==
LOC: SP 09:19
PROVIDERS: Family Provider Family Medicine; PCP Family Medicine; Referring Provider Clinical Nurse Specialist Acute Care; Visit Provider Clinical Nurse Specialist Acute Care
DX: G31.84 Mild cognitive impairment of uncertain or unknown etiology (principal); R48.0 Dyslexia and alexia; Z86.73 Personal history of transient ischemic attack (TIA), and cerebral infarction without residual deficits
CPT/HCPCS: 92523

== ENCOUNTER → 2019-04-19 | Outpatient (CLI) | payer OTHER, SELFPAY ==
[2018-11-08 00:53] VITALS: BMI 32.3
== END | disposition home or self-care (01) ==
LOC: PSN 07:24
PROVIDERS: Family Provider Family Medicine; PCP Family Medicine; Referring Provider Clinical Nurse Specialist Acute Care; Visit Provider Clinical Nurse Specialist Acute Care
DX: R56.9 Unspecified convulsions (principal)
CPT/HCPCS: 95819

== ENCOUNTER → 2019-05-31 | Outpatient (CLI) | payer OTHER, SELFPAY ==
[2018-11-08 00:53] VITALS: BMI 32.3
[2019-05-31 13:30] LABS: PTHIN 66.4 pg/mL (18.4-80.1); Vitamin B12 643 pg/mL (211-911)
[2019-05-31 13:39] LABS: Thyroid Stim Hormone (TSH) 2.79 uIU/mL (0.358-3.74)
[2019-06-03 14:50] LABS: ANTINUCLEAR ANTIBODIES DIRECT Negative (Negative)
== END | disposition home or self-care (01) ==
LOC: LAB 12:00
PROVIDERS: Family Provider Family Medicine; PCP Family Medicine; Referring Provider Clinical Nurse Specialist Acute Care; Visit Provider Clinical Nurse Specialist Acute Care
DX: R56.9 Unspecified convulsions (principal); R41.0 Disorientation, unspecified; R41.81 Age-related cognitive decline
CPT/HCPCS: 36415; 82330; 82607; 82746; 83970; 84443; 86038; 86225; 86235

== ENCOUNTER → 2019-07-19 | Outpatient (CLI) | payer OTHER, SELFPAY ==
[2018-11-08 00:53] VITALS: BMI 32.3
== END | disposition home or self-care (01) ==
PROVIDERS: Family Provider Family Medicine; PCP Family Medicine; Referring Provider Clinical Nurse Specialist Acute Care; Visit Provider Clinical Nurse Specialist Acute Care
DX: G47.33 Obstructive sleep apnea (adult) (pediatric) (principal)
CPT/HCPCS: 95811

== ENCOUNTER → 2020-06-26 | Outpatient (CLI) | payer OTHER, MEDICAID, SELFPAY ==
[2020-06-26 08:23] VITALS: BMI 32.3
[2020-06-26 12:15] LABS: Absolute Lymphocyte Count 1.39 X10^3/uL (0.83-4.51); Absolute Neutrophil Count 3.3 X10^3/uL (2.0-7.7); Basophil# 0.02 X10^3/uL; Basophil% 0.4 % (0-1); Eosinophil# 0.21 X10^3/uL; Eosinophils% 3.7 % (0-5); Hematocrit 47.1 % (40-54); Hemoglobin 15.1 g/dL (13.0-16.5); Lymphocyte # 1.39 X10^3/ul (4.0); Lymphocyte % 24.4 % (19-41); Mean Corp Hgb Conc 32.1 g/dL (32-36); Mean Corpuscular Hgb 31.1 pg (27.0-32.0); Mean Corpuscular Volume 96.9 fL (80-94); Monocyte# 0.75 X10^3/uL; Monocyte% 13.2 % (0-10); NRBC Flagged by Analyzer 0 % (0-5); Neutrophil # 3.31 X10^3/uL (2.7-7.7); Neutrophil % 57.9 % (47-70); Platelet Count 286 K/mm3 (150-450); RBC Distribution Width CV 13.2 % (11.6-14.6); RBC Distribution Width SD 47.2 fl (35.1-43.9); Red Blood Count 4.86 M/mm3 (4.6-6.2); White Blood Count 5.7 K/mm3 (4.4-11.0)
[2020-06-26 12:31] LABS: ALB/GLOB Ratio 1.1 RATIO (0.9-2.4); AST(SGOT) 16 U/L (15-37); Alanine Aminotransfer ALT/SGPT 27 U/L (16-61); Albumin, Serum 3.9 g/dL (3.2-5.0); Alkaline Phosphatase 83 U/L (45-117); Anion Gap 3 (5-15); BUN 18 mg/dL (7-18); BUN/Creat Ratio 19.1 RATIO (10-20); Calcium,Total 8.9 mg/dL (8.5-10.1); Chloride 106 mmol/L (98-107); Cholesterol 140 mg/dL (200); Creatinine, Serum 0.94 mg/dL (0.70-1.30); EST Glomerular Filtration Rate 88 mL/min (>60); Est Glom Filt Rate - Afr Amer 107 mL/min (>60); Globulin 3.6 g/dL (2.2-4.2); Glucose 88 mg/dL (74-106); High Density Lipoprotein 38 mg/dL; Potassium 4.3 mmol/L (3.5-5.1); Protein, Total 7.5 g/dL (6.4-8.2); Sodium Level 139 mmol/L (136-145); Triglycerides 107 mg/dL; Very Low Density Lipoprotein 21 mg/dL (5-40)
== END | disposition home or self-care (01) ==
PROVIDERS: PCP Internal Medicine; Referring Provider Internal Medicine; Visit Provider Internal Medicine
DX: I10 Essential (primary) hypertension (principal); G47.30 Sleep apnea, unspecified
CPT/HCPCS: 36415; 80053; 80061; 85025

== ENCOUNTER → 2020-08-25 | Outpatient (CLI) | payer OTHER, MEDICAID, SELFPAY ==
[2020-06-26 08:23] VITALS: BMI 32.3
== END | disposition home or self-care (01) ==
LOC: SL 14:19
PROVIDERS: PCP Internal Medicine; Referring Provider Clinical Nurse Specialist Acute Care; Visit Provider Clinical Nurse Specialist Acute Care
DX: G47.33 Obstructive sleep apnea (adult) (pediatric) (principal)
CPT/HCPCS: 98960; G0463

== ENCOUNTER → 2020-09-25 | Outpatient (CLI) | payer OTHER, MEDICAID, SELFPAY ==
[2020-09-25 13:40] LABS: PSA,Total - Annual Screen 1.13 ng/mL (0.00-4.00)
== END | disposition home or self-care (01) ==
LOC: BIMLAB 08:42
PROVIDERS: PCP Internal Medicine; Referring Provider Internal Medicine; Visit Provider Internal Medicine
DX: Z00.00 Encounter for general adult medical examination without abnormal findings (principal); Z12.5 Encounter for screening for malignant neoplasm of prostate
CPT/HCPCS: 36415; 84153; G0103

== ENCOUNTER → 2020-11-13 20:15 | Outpatient (CLI) | payer OTHER, MEDICAID, SELFPAY ==
[2020-10-16 11:07] VITALS: BMI 29.2
== END ==
PROVIDERS: PCP Internal Medicine; Referring Provider Nurse Practitioner Acute Care; Visit Provider Nurse Practitioner Acute Care
DX: G47.30 Sleep apnea, unspecified (principal)
CPT/HCPCS: 95811

== ENCOUNTER → 2020-11-14 07:01 | Outpatient (CLI) | payer OTHER, MEDICAID, SELFPAY ==
[2020-10-16 11:07] VITALS: BMI 29.2
--- NOTE | 2020-11-14 07:24 | MRI_ITS ---
STUDY: MRI BRAIN WITHOUT CONTRAST REASON FOR EXAM: Male, 55 years old. DEMENTIA, APHASIA, TROUBLE WALKING -- x 1 year TECHNIQUE: Standardized multiplanar fat and water weighted pulse sequences were obtained. COMPARISON: None. FINDINGS: Normal size of the ventricles and extra-axial spaces for the patient''s age. Normal white matter tracts of the supratentorial brain. There is no evidence for recent intracranial ischemia or other cause of cytotoxic edema on diffusion weighted imaging (DWI). Normal T2* images of the brain without demonstrated susceptibility artifact. There is no demonstrated hemosiderin stain. Normal bilateral basal ganglia. Normal thalami. There is no extra-axial fluid accumulation. Normal flow voids within the major intracranial circulation suggesting patency by spin echo criteria. Normal sella turcica, pituitary gland, infundibular stalk, optic chiasm and hypothalamus. Normal tectal plate and pineal gland. Normal midbrain, thomas and medulla. Normal cerebellum. Normal basal cisterns. Normal bilateral temporal bones. Normal bilateral internal auditory canals. No demonstrated orbital abnormality, within the constraints of a routine brain study. Normal visualized paranasal sinuses. Normal calvarium and skull base. Normal visualized soft tissue structures. Normal visualized upper cervical spine. MRI/Brain without Contrast IMPRESSION: No evidence of acute intracranial bleed, mass or ischemia. Electronically Signed: Kam Reese DO at 9:10 EST , Service support ,
[2020-11-14 08:16] LABS: T4 Free Direct 0.87 ng/dL (0.76-1.46); Thyroid Stim Hormone (TSH) 2.27 uIU/mL (0.358-3.74)
[2020-11-16 09:30] LABS: Vitamin B12 423 pg/mL (211-911)
== END ==
PROVIDERS: PCP Internal Medicine; Referring Provider Psychiatry & Neurology Sleep Medicine; Visit Provider Psychiatry & Neurology Sleep Medicine
DX: I63.9 Cerebral infarction, unspecified (principal); R47.01 Aphasia; R53.1 Weakness; G47.33 Obstructive sleep apnea (adult) (pediatric); R41.89 Other symptoms and signs involving cognitive functions and awareness
CPT/HCPCS: 36415; 70551; 82607; 84439; 84443

== ENCOUNTER → 2021-07-02 06:12 | Outpatient (CLI) | payer OTHER, MEDICAID, SELFPAY ==
[2021-02-19 10:34] VITALS: BMI 34.2
--- NOTE | 2021-07-02 08:45 | TELEMED_ITS ---
[facility] Telemed has confirmed receipt of a request for visit. This document confirms receipt of the order initiating the consult. To find the results of the consultation, please view the patient's reports for the scanned Telemed Consult.
[2021-07-02 10:36] LABS: Erythrocyte Sedimentation Rate 12 mm/hr (0-20)
[2021-07-02 11:13] LABS: Vitamin D,25 Hydroxy 36.2 ng/mL
[2021-07-02 11:32] LABS: Ferritin 225 ng/mL (26-388)
[2021-07-07 03:07] LABS: Albumin 3.9 g/dL (2.9-4.4); Alpha-1-Globulins 0.2 g/dL (0.0-0.4); Alpha-2-Globulins 0.8 g/dL (0.4-1.0); Gamma Globulin 1.2 g/dL (0.4-1.8); Immunoglobulin A 316 mg/dL (90-386); Immunoglobulin G 1142 mg/dL (603-1613); Immunoglobulin M 72 mg/dL (20-172); PROEL- TOTAL PROTEIN 7.2 g/dL (6.0-8.5)
[2021-07-07 10:07] LABS: Arsenic 7245 3 ug/L (2-23); Lead, Blood < 1 ug/dL (0-4); Mercury, Blood 85324 < 1.0 ug/L (0.0-14.9)
== END ==
PROVIDERS: PCP Internal Medicine; Referring Provider Psychiatry & Neurology Sleep Medicine; Visit Provider Psychiatry & Neurology Sleep Medicine
DX: G47.33 Obstructive sleep apnea (adult) (pediatric) (principal); F98.8 Other specified behavioral and emotional disorders with onset usually occurring in childhood and adolescence; D53.1 Other megaloblastic anemias, not elsewhere classified; R41.82 Altered mental status, unspecified; R26.9 Unspecified abnormalities of gait and mobility; R27.9 Unspecified lack of coordination; R20.2 Paresthesia of skin
CPT/HCPCS: 36415; 82175; 82306; 82607; 82728; 82784; 83655; 83825; 83921; 84165; 85652; 86038; 86334; 95819

== ENCOUNTER 2022-09-28 17:56 | Emergency (ER) | payer OTHER, SELFPAY ==
[2022-09-28 17:57] VITALS: BP 189/85; PULSE 72; RESP 16; TEMP 36.2; O2SAT 99; BMI 28.0
--- NOTE | 2022-09-28 19:41 | EDS_ITS ---
HPI History of Present Illness Chief Complaint: Lower Extremity Injury Narrative Narrative: 57-year-old male presenting with left knee pain. He states he had a mechanical fall the other day while walking the dog and struck his left knee. He does not believe he struck anything else. He has been ambulatory since then. He notes swelling over the left knee and bruising. The bruising has slowly descended down into the calf and the tibial region. Patient denies any new trauma. He is on daily aspirin but no anticoagulation. [facility] Medical History Back problem History of stroke Hypertension Seasonal allergies Sleep apnea Home Medications aspirin 81 mg chewable tablet 81 mg PO DAILY@0800 11/08/18 [Rx Last Taken Unknown] fexofenadine 60 mg tablet (Allergy Relief (fexofenadine)) 60 mg PO BID PRN allergies 02/18/22 [History Last Taken Unknown] Allergy/AdvReac Type Severity Reaction Status Date / Time No Known Allergies Allergy Verified 09/28/22 18:00 Family History Other Alcoholism CVA (cerebral vascular accident) Diabetes Mental disorder Skin cancer Social History Smoking Status: Never smoker alcohol intake: never substance use type: does not use what type of physical activity do you participate in: other details: torres/active lifestyle ROS ROS ED Review of Systems ROS Unobtainable: Denies due to encephalopathy Constitutional Constitutional ED: Denies chills or fever(s) Eyes Eyes: Denies change in vision ENT ENT ED: Denies rhinorrhea or sore throat Cardiovascular Cardiovascular: Denies chest pain or palpitations Respiratory/Chest Respiratory/Chest: Denies cough or dyspnea Genitourinary Genitourinary ED: Denies dysuria or hematuria Musculoskeletal Musculoskeletal: Reports other Details: Left knee pain ; Denies arthralgias or back pain Integumentary Reports other Details: Bruising and swelling in left leg from the left knee down Neurologic Neurologic: Denies headache(s) or paresthesias EXAM Physical Exam Const Vital Signs: 09/28/22 17:57 Temperature 97.2 F L Temperature Source Temporal Pulse Rate 72 Respiratory Rate 16 Blood Pressure 189/85 H Blood Pressure Mean 119 Pulse Ox 99 Oxygen Delivery Method Room Air Positive well nourished General Appearance ED: NAD HEENT Reports moist mucous membranes normocephalic and atraumatic Chest Wall inspection of chest normal Resp normal respiratory effort Cardio regular rate and regular rhythm Extremity Extremity Narrative: Left knee mildly tender to palpation especially over the medial joint line. There is swelling around the knee and the patella specifically. I suspect the bursa is swollen. No evidence of deep space infection. Patient maintains full range of motion of left knee without difficulty. Left knee extensor mechanism is intact. There is noted to be bruising distending over the calf bilaterally on the lateral and medial regions. There is also bruising noted in the tibial region. There is no pain to palpation in the left foot, left calf. Compartments are soft. No cords are palpated. Skin Skin Narrative: As described above MDM MDM MDM Narrative Medical decision making narrative: Patient does not want anything for pain. X-ray of the left knee and mitral rotation shows some slight edema. He does have this on exam. He does not have any pain with range of motion and I do not suspect a septic joint. Radiology interpreted the x-ray and agrees. DVT study was obtained and there is no DVT noted in the left lower extremity. Patient counseled on findings. He is to use rest, ice, compression, elevation. Patient to follow-up with his primary care provider to ensure resolution. Impression: 1. Mechanical fall 2. Left knee contusion 3. Unilateral lower extremity edema Radiography Diagnostic Testing: Clinical Impression(s) from Imaging Studies Knee X-Ray 09/28/22 19:52 IMPRESSION: Prepatellar edema as can be seen with bursitis or contusion. Correlate with history. Mild tricompartment osteoarthritis Electronically Signed: Kenneth Bran MD at 20:15 EDT Reading Location ID and State: [facility] / [place] Tel , Service support , Discharge Plan Triage Chief Complaint: Lower Extremity Injury ED Provider: Brett Adkins Dx/Rx/DC Orders Instructions: ED Contusion, Lower Extremity, ED Peripheral Edema, Unilateral Prescriptions: No Action fexofenadine [Allergy Relief (fexofenadine)] 60 mg tablet 60 mg PO BID PRN (Reason: allergies) aspirin 81 MG tablet,chewable 81 mg PO DAILY@0800 0RF Primary Care Provider: Shane Kumar Referrals: Shane Kumar MD [Primary Care Provider] - Disposition Disposition: Home, Self Care
--- NOTE | 2022-09-28 19:52 | RAD_ITS ---
STUDY: X-RAY - LEFT KNEE REASON FOR EXAM: Male, 57 years old. pain TECHNIQUE: 4 view(s) of the knee. COMPARISON: None. FINDINGS: Prepatellar soft tissue edema, medial greater than lateral. No joint effusion. Normal alignment. No fracture. No osteochondral defect. Mild tricompartment osteophyte formation. RAD/Knee 4 or More Views IMPRESSION: Prepatellar edema as can be seen with bursitis or contusion. Correlate with history. Mild tricompartment osteoarthritis Electronically Signed: Kenneth Bran MD at 20:15 EDT ,
--- NOTE | 2022-09-28 19:58 | US_ITS ---
These INDICATION: LT LEG PAIN REDNESS AND SWELLING EXAMINATION: Ultrasound US Venous Duplex LE Unilat / Limited TECHNIQUE: Hathaway scale, pulse wave, and color flow Doppler imaging was performed of the lower extremity venous system. The left greater saphenous, common femoral, femoral, popliteal, posterior tibial and peroneal veins were interrogated. Right common femoral vein assessed. COMPARISON: None. FINDINGS: There is normal compression, augmentation, and signal throughout the visualized deep lower extremity veins. No mass or fluid collection. US/Venous Duplex Imag/Limited/Uni IMPRESSION: No sonographic evidence of left lower extremity deep venous thrombosis. Electronically Signed: Kenneth Bran MD at 20:57 EDT ,
== END 2022-09-28 20:26 | disposition home or self-care (01) ==
PROVIDERS: Emergency Provider Student in an Organized Health Care Education/Training Program; PCP Internal Medicine; Visit Provider Student in an Organized Health Care Education/Training Program
DX: S80.02XA Contusion of left knee, initial encounter (principal); R60.0 Localized edema; I10 Essential (primary) hypertension; W19.XXXA Unspecified fall, initial encounter
CPT/HCPCS: 73564; 93971; 99282

== ENCOUNTER 2022-10-11 18:55 | Emergency (ER) | payer OTHER, SELFPAY ==
[2022-10-11 18:56] VITALS: BP 183/76; PULSE 81; RESP 16; TEMP 36.8; O2SAT 97
[2022-10-11 19:17] VITALS: BP 183/76; PULSE 81; RESP 16; TEMP 36.8; O2SAT 97
--- NOTE | 2022-10-11 19:33 | EDS_ITS ---
HPI History of Present Illness Chief Complaint: Cellulitis Detail of Chief Complaint: Redness and swelling to the left leg Informant: patient Narrative Narrative: Patient presents the emergency department complaint of left leg redness and s welling for 3 days. Patient states that 4 weeks ago he fell off and bruised his knee and then was seen in the ER on September 28 where he had x-rays of his leg and a venous Doppler that was negative for DVT. Patient states that the bruising seemed to improve but now there is this redness to the lower leg that they became concerned about. Patient's had no fever or chills or sweats. Patient does wear some compressive type socks to about mid calf. [facility] Medical History Back problem History of stroke Hypertension Seasonal allergies Sleep apnea Home Medications aspirin 81 mg chewable tablet 81 mg PO DAILY@0800 11/08/18 [Rx Last Taken Unknown] fexofenadine 60 mg tablet (Allergy Relief (fexofenadine)) 60 mg PO BID PRN allergies 02/18/22 [History Last Taken Unknown] Allergy/AdvReac Type Severity Reaction Status Date / Time No Known Allergies Allergy Verified 10/11/22 18:56 Family History Other Alcoholism CVA (cerebral vascular accident) Diabetes Mental disorder Skin cancer Social History Smoking Status: Never smoker alcohol intake: never substance use type: does not use what type of physical activity do you participate in: other details: torres/active lifestyle ROS ROS ED Review of Systems ROS Unobtainable: other Constitutional Constitutional ED: Reports lethargy; Denies chills, fever(s), sweats or weight loss Eyes Eyes: Denies blurry vision, change in vision or diplopia ENT ENT ED: Denies rhinorrhea or sore throat Cardiovascular Cardiovascular: Denies chest pain, orthopnea or racing heartbeat Respiratory/Chest Respiratory/Chest: Denies cough, dyspnea, dyspnea on exertion, orthopnea or sputum Gastrointestinal Gastrointestinal: Denies abdominal pain, diarrhea, nausea or vomiting Genitourinary Genitourinary ED: Denies dysuria, hematuria or urinary frequency Musculoskeletal Musculoskeletal: Denies arthralgias, back pain, myalgias or neck pain Integumentary Reports rash; Denies abscess or Abrasions Neurologic Neurologic: Denies headache(s) or weakness Psychiatric Psychiatric: Denies anxiety, depression or suicidal thoughts Endocrine Endocrinology: Denies polydipsia, polyphagia or polyuria Hematologic/Lymphatic Hematologic/Lymphatic: Denies easy bleeding, easy bruising or lymphadenopathy Allergic/Immunologic Allergic/Immunologic ED: Denies mouth swelling, tongue swelling or urticaria EXAM Physical Exam Const Vital Signs: 10/11/22 18:56 10/11/22 19:17 Temperature 98.3 F 98.3 F Temperature Source Temporal Temporal Pulse Rate 81 81 Respiratory Rate 16 16 Blood Pressure 183/76 H 183/76 H Blood Pressure Mean 111 111 Pulse Ox 97 97 Oxygen Delivery Method Room Air Room Air Positive well nourished and well developed General Appearance ED: well developed and NAD HEENT Reports TM's clear and moist mucous membranes normocephalic and atraumatic; Negative for trauma or tenderness Tympanic Membrane ED: Yes TM's clear Eyes PERRL and EOMs intact bilaterally General Eye ED: Negative for pale conjunctiva or scleral icterus Neck no lymphadenopathy, supple and no JVD General: Negative for tenderness Chest Wall inspection of chest normal and palpation of chest normal Chest: Negative for tenderness Resp normal respiratory effort and clear to auscultation bilaterally Effort and Inspection: Negative for respiratory distress or pain with movement Auscultation: Negative for rhonchi, wheezes or diminished lung sounds Cardio regular rate, regular rhythm, S1 normal heart sound, S2 normal heart sound and no murmurs Peripheral Pulses: pulses 2+ throughout GI normal to inspection, nondistended, normoactive bowel sounds, soft to palpation, non-tender, non-distended and no masses Back/Spine no CVA tenderness and no thoracic nor lumbar tenderness Extremity Extremity Narrative: Famished of the left leg does reveal trace edema. Patient has some erythema noted to the anterior espinal as well as lateral calf that appears more vasculitic type changes rather than cellulitic changes. There is no significant warmth. There is no lymphangitic streaking. Patient neurovascular intact distally. General Extremety ED: Negative for edema General Extremity: Negative for edema Neuro oriented x3, CN's II-XII intact bilaterally, no sensory deficits noted and gait normal Sensorium / Orientation: awake, alert, oriented to person, oriented to place and oriented to time Motor Exam: strength 5/5 throughout and strength abnormal Psych mental status grossly normal Skin no rashes or lesions noted and no wounds MDM MDM MDM Narrative Medical decision making narrative: Patient had a venous Doppler of the lower extremity that was negative for DVT. Lab work-up was normal. Clinically I do not feel he has a cellulitis. Wondering if the skin changes are related to the compression stockings potentially. The dermatitis almost looks like a vasculitic process. At this point I will feel antibiotics are indicated. Patient advised to follow-up with his primary care physician within next 3 to 5 days. He is to return if fever, c hills, sweats, increased redness, or condition should worsen anyway Lab Data Attestation: I reviewed the patient's lab results. Labs: Laboratory Results - last 24 hr 10/11/22 10/11/22 19:15 19:15 WBC 7.5 RBC 4.51 L Hgb 13.8 Hct 42.7 MCV 94.7 H MCH 30.6 MCHC 32.3 RDW Std Deviation 46.5 H RDW Coeff of Jefferson 13.3 Plt Count 277 MPV 9.7 Immature Gran % (Auto) 0.300 Neut % (Auto) 63.8 Lymph % (Auto) 22.7 Rincon % (Auto) 9.3 Eos % (Auto) 3.5 Baso % (Auto) 0.4 Absolute Neuts (auto) 4.8 Absolute Lymphs (auto) 1.69 Nucleated RBC % 0 Sodium 141 Potassium 3.7 Chloride 105 Carbon Dioxide 27.0 Anion Gap 9 BUN 16 Creatinine 1.00 Estim Creat Clear Calc 93.62 Est GFR (MDRD) Af Amer 99 Est GFR (MDRD) Non-Af 81 BUN/Creatinine Ratio 16.0 Glucose 158 H Calcium 8.6 Radiography Diagnostic Testing: Clinical Impression(s) from Imaging Studies Venous Duplex 10/11/22 19:35 IMPRESSION: Normal left lower extremity duplex venous ultrasound. Electronically Signed: Conrado Amezcua MD at 20:19 EST , Discharge Plan Triage Chief Complaint: Cellulitis ED Provider: Bernie Hedrick Dx/Rx/DC Orders Clinical Impression: Dermatitis Instructions: ED Erythema Prescriptions: No Action fexofenadine [Allergy Relief (fexofenadine)] 60 mg tablet 60 mg PO BID PRN (Reason: allergies) aspirin 81 MG tablet,chewable 81 mg PO DAILY@0800 0RF Primary Care Provider: Shane Kumar Referrals: Shane Kumar MD [Primary Care Provider] - 3-5 Days Disposition Disposition: Home, Self Care
--- NOTE | 2022-10-11 19:35 | US_ITS ---
EXAM: US DUPLEX LEFT LOWER EXTREMITY VEINS CLINICAL INDICATION: LT CALF REDNESS TECHNIQUE: Real-time duplex ultrasound scan of the left lower extremity veins integrating B-mode two-dimensional vascular structure, Doppler spectral analysis, color flow Doppler imaging and compression. This report was created using Ranker report generation technology. COMPARISON: 10/28/2022. FINDINGS: DEEP VEINS: Unremarkable. No DVT in the visualized common femoral, femoral, proximal deep femoral or popliteal veins. The veins demonstrate normal color flow, are normally compressible, with normal phasic flow and/or augmentation response. SUPERFICIAL VEINS: Unremarkable. No thrombus in the visualized great saphenous vein. SOFT TISSUES: No acute findings. No popliteal cyst. US/Venous Duplex Imag/Limited/Uni IMPRESSION: Normal left lower extremity duplex venous ultrasound. Electronically Signed: Conrado Amezcua MD at 20:19 EST ,
[2022-10-11 19:40] LABS: Absolute Lymphocyte Count 1.69 X10^3/uL (0.83-4.51); Absolute Neutrophil Count 4.8 X10^3/uL (2.0-7.7); Basophil# 0.03 X10^3/uL; Basophil% 0.4 % (0-1); Eosinophil# 0.26 X10^3/uL; Eosinophils% 3.5 % (0-5); Hematocrit 42.7 % (40-54); Hemoglobin 13.8 g/dL (13.0-16.5); Lymphocyte # 1.69 X10^3/ul (0.83-4.51); Lymphocyte % 22.7 % (19-41); Mean Corp Hgb Conc 32.3 g/dL (32-36); Mean Corpuscular Hgb 30.6 pg (27.0-32.0); Mean Corpuscular Volume 94.7 fL (80-94); Mean Platelet Vol. 9.7 fl (6.2-12.0); Monocyte# 0.69 X10^3/uL; Monocyte% 9.3 % (0-10); NRBC Flagged by Analyzer 0 % (0-5); Neutrophil # 4.76 X10^3/uL (2.7-7.7); Neutrophil % 63.8 % (47-70); Platelet Count 277 K/mm3 (150-450); RBC Distribution Width CV 13.3 % (11.6-14.6); RBC Distribution Width SD 46.5 fl (35.1-43.9); Red Blood Count 4.51 M/mm3 (4.6-6.2); White Blood Count 7.5 K/mm3 (4.4-11.0)
[2022-10-11 19:55] LABS: Anion Gap 9 (5-15); BUN 16 mg/dL (7-18); Calcium,Total 8.6 mg/dL (8.5-10.1); Chloride 105 mmol/L (98-107); EST Glomerular Filtration Rate 81 mL/min (>60); Est Glom Filt Rate - Afr Amer 99 mL/min (>60); Estimated Creatinine Clearance 93.62 ml/min; Glucose 158 mg/dL (74-106); Potassium 3.7 mmol/L (3.5-5.1); Sodium Level 141 mmol/L (136-145)
== END 2022-10-11 20:44 | disposition home or self-care (01) ==
PROVIDERS: Emergency Provider Emergency Medicine; PCP Internal Medicine; Visit Provider Emergency Medicine
DX: L30.9 Dermatitis, unspecified (principal); I10 Essential (primary) hypertension; M79.89 Other specified soft tissue disorders
CPT/HCPCS: 80048; 85025; 93971; 99283; A4216

== ENCOUNTER 2024-04-04 07:11 | Emergency (ER) | payer OTHER, SELFPAY ==
[2024-04-04 07:12] VITALS: BP 163/87; PULSE 65; RESP 16; TEMP 36.4; O2SAT 99
--- NOTE | 2024-04-04 07:22 | CT_ITS ---
STUDY: CTA HEAD AND NECK WITH CONTRAST REASON FOR EXAM: Male, 58 years old. Dizziness, word searching RADIATION DOSAGE (If Supplied By Facility): CTDIvol = ( 28.08 ) mGy, DLP = ( 1505.54 ) mGycm TECHNIQUE: CT angiography was performed with a multi-detector CT scanner. Data acquisition was obtained from the skull base through the vertex following intravenous administration of IV 100mL [id number]-[id number]. MIP images were reconstructed from the axial data set. Post-processing of the angiographic images was performed, with multiplanar reformation and 3D reconstruction. Individualized dose optimization techniques were used for this CT. COMPARISON: No relevant priors. FINDINGS: Normal bilateral petrous carotid arteries. Normal right cavernous carotid artery with a normal supraclinoid bifurcation. Normal left cavernous carotid artery with a normal supraclinoid bifurcation. There is non-visualization of the right A1 segment of the anterior cerebral arteries consistent with either aplastic development or an occlusion. Normal left A1 segments of the anterior cerebral artery. Normal intact anterior communicating artery (ACOM). Normal bilateral A2 segments of the anterior cerebral arteries. Normal right M1 and M2 segments of the middle cerebral arteries, with a normal M1 bifurcation. Normal left M1 and M2 segments of the middle cerebral arteries, with a normal M1 bifurcation. Normal right posterior communicating artery (PCOM). Normal left posterior communicating artery (PCOM). Normal bilateral vertebral arteries. Normal basilar artery with a normal basilar bifurcation. The visualized bilateral superior cerebellar (SCA) arteries are normal. Normal bilateral P1, P2 and visualized P3 segments of the posterior cerebral arteries. There is no demonstrated aneurysm of the ruby of Werner. There is no demonstrated abnormality of the visualized brain. There is evidence of an 8.7 mm x 6.7 mm hypodense nodule in the scalp overlying the superior aspect of the right parietal bone. This may represent a sebaceous cyst. AORTIC ARCH: There is a bovine origin of the great vessels arising from the aortic arch with a common origin of the brachiocephalic and left common carotid artery. Normal origin of the left subclavian artery. RIGHT CAROTID ARTERIES: Normal right common carotid artery (CCA). Normal right common carotid bulb. Normal origin of the right internal carotid (ICA) artery without a hemodynamically significant stenosis. Normal visualized cervical portion of the right internal carotid artery. Normal origin of the right external carotid artery (ECA). LEFT CAROTID ARTERIES: Normal left common carotid artery (CCA). Normal left common carotid bulb. There is mild atherosclerotic plaque formation of the origin of the left internal carotid artery with less than 50% cross sectional diameter stenosis. Normal visualized cervical portion of the left internal carotid artery. Normal origin of the left external carotid artery (ECA). VERTEBRAL ARTERIES: There is enhancement within the bilateral vertebral arteries with a small right vertebral artery, and a dominant left vertebral artery. CT/CTA Head AND Neck W/ Contrast IMPRESSION: Minimal plaque formation at the origin of the left internal carotid artery. There is nonvisualization of the right A1 segment of the right anterior cerebral artery. The unenhanced brain is unremarkable except for a 8.7 mm x 6.7 mm hypodense nodule in the scalp overlying the superior aspect of the right parietal bone. Electronically Signed: Irving Torrez MD at 8:48 EDT ,
--- NOTE | 2024-04-04 07:24 | EDS_ITS ---
HPI History of Present Illness Chief Complaint: Dizziness Informant: patient and spouse/S.O. Narrative Narrative: Patient presents with complaints of intermittent dizziness which he describes as a lightheadedness that has been ongoing since March 26. reports he has had more of a brain fog with difficulty finding words for the past 2 days. He had similar symptoms with strokes in the past. Patient denies fever, chills, cough, congestion. No vomiting or diarrhea. No recent medication changes. states he did stumble and fall this morning, although patient will claim that he sat down before he fell. [facility] Medical History Back problem History of stroke Hypertension Seasonal allergies Sleep apnea Home Medications aspirin 81 mg chewable tablet 81 mg PO DAILY@0800 11/08/18 [Rx Last Taken Unknown] fexofenadine 60 mg tablet (Allergy Relief (fexofenadine)) 60 mg PO BID PRN allergies 02/18/22 [History Last Taken Unknown] Allergy/AdvReac Type Severity Reaction Status Date / Time No Known Allergies Allergy Verified 04/04/24 07:12 Family History Other Alcoholism CVA (cerebral vascular accident) Diabetes Mental disorder Skin cancer Social History Smoking Status: Never smoker alcohol intake: never substance use type: does not use what type of physical activity do you participate in: other details: torres/active lifestyle ROS ROS ED Constitutional Constitutional ED: Denies chills or fever(s) Eyes Eyes: Denies discharge from eye(s) ENT ENT ED: Denies discharge from eye(s), rhinorrhea or sore throat Cardiovascular Cardiovascular: Denies chest pain or palpitations Respiratory/Chest Respiratory/Chest: Denies cough or dyspnea Gastrointestinal Gastrointestinal: Denies abdominal pain, nausea or vomiting Genitourinary Genitourinary ED: Denies dysuria Musculoskeletal Musculoskeletal: Denies back pain or extremity pain Integumentary Denies Abrasions or rash Neurologic Neurologic: Denies headache(s) or weakness Psychiatric Psychiatric: Denies anxiety or depression Allergic/Immunologic Allergic/Immunologic ED: Denies lip swelling or urticaria EXAM Physical Exam Const Vital Signs: 04/04/24 07:12 05/09/24 09:12 04/04/24 11:00 Temperature 97.5 F L 97.2 F L 97.6 F L Temperature Source Temporal Temporal Oral Pulse Rate 65 52 L 53 L Respiratory Rate 16 16 16 Blood Pressure 163/87 H 151/77 H 143/79 H Blood Pressure Mean 112 101 100 Pulse Ox 99 96 99 Oxygen Delivery Method Room Air Room Air Room Air 04/04/24 13:00 Temperature Temperature Source Pulse Rate 59 L Respiratory Rate 20 H Blood Pressure 160/78 H Blood Pressure Mean 105 Pulse Ox 97 Oxygen Delivery Method Room Air Positive well nourished and well developed General Appearance ED: well developed HEENT Reports moist mucous membranes Eyes EOMs intact bilaterally Chest Wall inspection of chest normal and palpation of chest normal Resp normal respiratory effort and clear to auscultation bilaterally Cardio regular rate and regular rhythm GI non-tender Palpation: soft Extremity normal to inspection Neuro oriented x3 and no sensory deficits noted Neuro Narrative: NIH equals 0 at 07:20 Motor Exam: strength 5/5 throughout Psych mental status grossly normal Skin no rashes or lesions noted MDM MDM MDM Narrative Medical decision making narrative: IV line established. Patient placed on electronic device monitor. EKG obtained to evaluate for cardiac arrhythmia/ischemia. Chest x-ray obtained to evaluate for acute lung pathology, cardiac size, or mediastinal abnormality. Labwork obtained to evaluate for leukocytosis, anemia, and electrolyte derangement. CT scan of the head along with CT of the head and neck obtained to evaluate for potential acute stroke/TIA. History & Record Review Discussion w/independent historian: Patient and Significant other Lab Data Attestation: I reviewed the patient's lab results. Labs: Laboratory Results - last 24 hr 04/04/24 04/04/24 07:37 09:10 WBC 5.8 RBC 4.99 Hgb 15.3 Hct 47.0 MCV 94.2 H MCH 30.7 MCHC 32.6 RDW Std Deviation 46.3 H RDW Coeff of [place] 13.3 Plt Count 270 MPV 9.6 Immature Gran % (Auto) 0.300 Neut % (Auto) 56.0 Lymph % (Auto) 26.1 Lee % (Auto) 13.0 H Eos % (Auto) 3.9 Baso % (Auto) 0.7 Absolute Neuts (auto) 3.3 Absolute Lymphs (auto) 1.52 Nucleated RBC % 0 Sodium 139 Potassium 4.0 Chloride 106 Carbon Dioxide 29.0 Anion Gap 4 L BUN 17 Creatinine 0.99 Est GFR (MDRD) Af Amer 99 Est GFR (MDRD) Non-Af 82 BUN/Creatinine Ratio 17.1 Glucose 111 H Calcium 8.9 Troponin I High Sens 5 Urine Color Yellow Urine Clarity Clear Urine pH 8.0 Ur Specific [place] 1.010 Urine Protein Negative Urine Glucose (UA) Normal Urine Ketones Negative Urine Occult Blood Negative Urine Nitrite Negative Urine Bilirubin Negative Urine Urobilinogen Normal Ur Leukocyte Esterase Negative Urine RBC 0 SEEN Urine WBC 0 SEEN Ur Squamous Epith Cells 0 SEEN Urine Bacteria 0 SEEN Urine Mucus 0 SEEN Radiography Chest X-Ray - ED: 1 View, Read by ED Physician, Chronic Changes and No Infiltrates Diagnostic Testing: Clinical Impression(s) from Imaging Studies Head/Neck CTA 04/04/24 07:22 IMPRESSION: Minimal plaque formation at the origin of the left internal carotid artery. There is nonvisualization of the right A1 segment of the right anterior cerebral artery. The unenhanced brain is unremarkable except for a 8.7 mm x 6.7 mm hypodense nodule in the scalp overlying the superior aspect of the right parietal bone. Electronically Signed: Irving Torrez MD at 8:48 EDT , Chest X-Ray 04/04/24 08:19 IMPRESSION: Normal x-ray examination of the chest. Electronically Signed: Alex Carvajal MD at 8:29 EDT , Brain MRI 04/04/24 09:45 IMPRESSION: No acute intracranial abnormality. No interval change. Electronically Signed: Sanchez Nieves MD at 15:56 EDT , EKG Initial EKG: Attestation: I personally reviewed and interpreted this EKG as follows: Interpretation: Sinus Rhythm (Sinus at 62 with no acute ischemia.) Treatment and Re-Evaluation :: CBC and chemistry studies are unremarkable. Troponin is normal at 5. Urinalysis reveals no evidence of acute infection. Portable chest x-ray per my interpretation was chronic changes with no focal infiltrate. Radiology i nterpretation reviewed and agrees. CTA of the head and neck obtained. Unenhanced brain is unremarkable except for a small nodule in the scalp. There is minimal plaque formation at the origin of the left internal carotid artery. There is nonvisualization of the right A1 segment of the right anterior cerebral. Patient has remained stable in the emergency room. He has an NIH score of 0. In light of this, we did elect to perform a MRI in the emergency room. This returns with no evidence of acute infarct. Patient will be discharged to home. He does not have a primary care physician currently and will be referred to daron Urias in the no doc list. I will also refer him to Dr. Flannery for neurology follow-up. Return instructions given. Discharge Plan Triage Chief Complaint: Dizziness ED Provider: Magda Garcia Dx/Rx/DC Orders Clinical Impression: Dizziness Instructions: ED Dizziness, Uncertain Cause Prescriptions: No Action fexofenadine [Allergy Relief (fexofenadine)] 60 mg tablet 60 mg PO BID PRN (Reason: allergies) aspirin 81 MG tablet,chewable 81 mg PO DAILY@0800 0RF Primary Care Provider: Shane Kumar Referrals: Shane Kumar MD [Primary Care Provider] - Aysha Kaur MD [Med Staff - Senior Procurement Specialist] - 1-2 Weeks Marlon Mckay MD [Non-Staff -Ordering Privileges] - 1 Week Activity Restrictions/Additional Instructions: As discussed, please follow-up with pulmonology to ensure your CPAP settings are correct Disposition Disposition: Home, Self Care
[2024-04-04 07:58] LABS: Absolute Lymphocyte Count 1.52 X10^3/uL (0.83-4.51); Absolute Neutrophil Count 3.3 X10^3/uL (2.0-7.7); Basophil# 0.04 X10^3/uL; Basophil% 0.7 % (0-1); Eosinophil# 0.23 X10^3/uL; Eosinophils% 3.9 % (0-5); Hemoglobin 15.3 g/dL (13.0-16.5); Lymphocyte # 1.52 X10^3/ul (0.83-4.51); Lymphocyte % 26.1 % (19-41); Mean Corp Hgb Conc 32.6 g/dL (32-36); Mean Corpuscular Hgb 30.7 pg (27.0-32.0); Mean Corpuscular Volume 94.2 fL (80-94); Mean Platelet Vol. 9.6 fl (6.2-12.0); Monocyte# 0.76 X10^3/uL; NRBC Flagged by Analyzer 0 % (0-5); Neutrophil # 3.26 X10^3/uL (2.7-7.7); Platelet Count 270 K/mm3 (150-450); RBC Distribution Width CV 13.3 % (11.6-14.6); RBC Distribution Width SD 46.3 fl (35.1-43.9); Red Blood Count 4.99 M/mm3 (4.6-6.2); White Blood Count 5.8 K/mm3 (4.4-11.0)
[2024-04-04] MEDS: 0.9% Normal Saline (1000mL) 1,000 ML 150 ML IV (08:04)
[2024-04-04 08:19] LABS: Anion Gap 4 (5-15); BUN 17 mg/dL (7-18); BUN/Creat Ratio 17.1 RATIO (10-20); Calcium,Total 8.9 mg/dL (8.5-10.1); Chloride 106 mmol/L (98-107); Creatinine, Serum 0.99 mg/dL (0.70-1.30); EST Glomerular Filtration Rate 82 mL/min (>60); Est Glom Filt Rate - Afr Amer 99 mL/min (>60); Glucose 111 mg/dL (74-106); Sodium Level 139 mmol/L (136-145); Troponin-I HS 5 pg/mL (3.0-78.0)
--- NOTE | 2024-04-04 08:19 | RAD_ITS ---
STUDY: X-RAY CHEST REASON FOR EXAM: Male, 58 years old. Shortness of breath and cough TECHNIQUE: Single AP portable view of the chest. COMPARISON: None. FINDINGS: The lungs are clear and expanded. There is no demonstrated pleural abnormality. Normal size heart. Normal mediastinum and ezio. Normal visualized pulmonary arteries. Normal visualized aortic arch and descending thoracic aorta. Normal visualized thoracic spine. Normal visualized ribs, clavicles, and shoulders. There is no demonstrated abnormality of the visualized soft tissue structures of the upper abdomen. RAD/Chest 1 View (Portable) IMPRESSION: Normal x-ray examination of the chest. Electronically Signed: Alex Carvajal MD at 8:29 EDT ,
[2024-04-04 09:12] VITALS: BP 151/77; PULSE 52; RESP 16; TEMP 36.2; O2SAT 96
[2024-04-04 09:19] LABS: Bacteria 0 SEEN /hpf (None Seen); Mucous, Urine 0 SEEN /hpf (<or=2+); Red Blood Cells-Urine 0 SEEN /hpf (0-5); Squamous Epithelial Cells - UA 0 SEEN /hpf (0-5); White Blood Cells 0 SEEN /hpf (0-5)
[2024-04-04 09:38] LABS: Color, Urine Yellow (Yellow); Glucose, Dipstick Normal (Normal); Ketone-Dipstick Negative (Negative); Leukocyte Esterase-Dipstick Negative /ul (Negative); Nitrite-Dipstick Negative (Negative); Occult Blood-Urine Negative /ul (Negative); Protein-Dipstick Negative (Negative); Urine Bilirubin Dipstick Negative (Negative); Urine Clarity Clear (Clear); Urine Urobilinogen Normal (Normal)
--- NOTE | 2024-04-04 09:45 | MRI_ITS ---
EXAM: MR HEAD WITHOUT INTRAVENOUS CONTRAST CLINICAL INDICATION: TIA vs CVA TECHNIQUE: Multiplanar and multisequence MR images of the brain were obtained without intravenous contrast. COMPARISON: MR Head dated 11/14/2020 FINDINGS: BRAIN AND EXTRA-AXIAL SPACES: Normal. No intra- or extra-axial hemorrhage. No evidence of acute infarct. No intracranial mass or mass effect. Normal preservation of the arango/white matter interface. Posterior fossa structures are unremarkable. Ventricles are appropriate for age. No hydrocephalus. Basal cisterns are patent. SELLA: Normal. Normal sella turcica, pituitary gland, infundibular stalk, optic chiasm and hypothalamus. AUDITORY SYSTEM: Normal. The internal auditory canals are patent. BONES/JOINTS: Intact calvarium. SINUSES: Unremarkable as visualized. Clear. MASTOID AIR CELLS: Unremarkable as visualized. Clear. ORBITS: Unremarkable as visualized. Both globes, extraocular muscles, optic nerves and retrobulbar fat appear unremarkable. VASCULATURE: Unremarkable as visualized. Normal flow voids in the major intracranial circulation. SOFT TISSUES: Bilateral scalp nodules are again noted. MRI/Brain without Contrast IMPRESSION: No acute intracranial abnormality. No interval change. Electronically Signed: Sanchez Nieves MD at 15:56 EDT ,
[2024-04-04 11:00] VITALS: BP 143/79; PULSE 53; RESP 16; TEMP 36.4; O2SAT 99
[2024-04-04 13:00] VITALS: BP 160/78; PULSE 59; RESP 20; O2SAT 97
[2024-04-04 13:09] VITALS: BMI 30.8
[2024-04-04 16:46] VITALS: BP 151/78; PULSE 55; RESP 15; TEMP 37; O2SAT 99
== END 2024-04-04 16:49 | disposition home or self-care (01) ==
PROVIDERS: Emergency Provider Emergency Medicine; PCP Internal Medicine; Visit Provider Emergency Medicine
DX: R42 Dizziness and giddiness (principal); I10 Essential (primary) hypertension
CPT/HCPCS: 70496; 70498; 70551; 71045; 80048; 81001; 84484; 85025; 93005; 96360; 96361; 99284; J7030; Q9967

== ENCOUNTER → 2024-04-11 | Outpatient (CLI) | payer OTHER, SELFPAY ==
[2024-04-11 10:07] LABS: Absolute Lymphocyte Count 1.44 X10^3/uL (0.83-4.51); Absolute Neutrophil Count 2.9 X10^3/uL (2.0-7.7); Basophil# 0.03 X10^3/uL; Basophil% 0.6 % (0-1); Eosinophil# 0.17 X10^3/uL; Eosinophils% 3.3 % (0-5); Hematocrit 46.9 % (40-54); Hemoglobin 15.1 g/dL (13.0-16.5); Lymphocyte # 1.44 X10^3/ul (0.83-4.51); Lymphocyte % 28.2 % (19-41); Mean Corp Hgb Conc 32.2 g/dL (32-36); Mean Corpuscular Hgb 30.6 pg (27.0-32.0); Mean Corpuscular Volume 95.1 fL (80-94); Mean Platelet Vol. 9.9 fl (6.2-12.0); Monocyte# 0.53 X10^3/uL; Monocyte% 10.4 % (0-10); NRBC Flagged by Analyzer 0 % (0-5); Neutrophil # 2.92 X10^3/uL (2.7-7.7); Neutrophil % 57.1 % (47-70); Platelet Count 280 K/mm3 (150-450); RBC Distribution Width CV 13.3 % (11.6-14.6); RBC Distribution Width SD 47.5 fl (35.1-43.9); Red Blood Count 4.93 M/mm3 (4.6-6.2); White Blood Count 5.1 K/mm3 (4.4-11.0)
[2024-04-11 10:32] LABS: Rheumatoid Factor < 10.0 IU/mL (<15)
[2024-04-11 10:37] LABS: AST(SGOT) 17 U/L (15-37); Alanine Aminotransfer ALT/SGPT 30 U/L (16-61); Albumin, Serum 3.8 g/dL (3.2-5.0); Alkaline Phosphatase 94 U/L (45-117); Anion Gap 5 (5-15); BUN 15 mg/dL (7-18); BUN/Creat Ratio 14.7 RATIO (10-20); Calcium,Total 8.9 mg/dL (8.5-10.1); Chloride 104 mmol/L (98-107); Cholesterol 163 mg/dL (200); Creatinine, Serum 1.02 mg/dL (0.70-1.30); EST Glomerular Filtration Rate 79 mL/min (>60); Est Glom Filt Rate - Afr Amer 96 mL/min (>60); Globulin 3.9 g/dL (2.2-4.2); Glucose 106 mg/dL (74-106); High Density Lipoprotein 39 mg/dL; Potassium 3.9 mmol/L (3.5-5.1); Protein, Total 7.7 g/dL (6.4-8.2); Sodium Level 138 mmol/L (136-145); Triglycerides 87 mg/dL; Very Low Density Lipoprotein 17 mg/dL (5-40)
[2024-04-12 13:08] LABS: ANTINUCLEAR ANTIBODIES DIRECT Negative (Negative)
[2024-04-16 01:07] LABS: Lyme IgG P18 Ab Absent (.); Lyme IgG P23 Ab Absent (.); Lyme IgG P28 Ab Absent (.); Lyme IgG P30 Ab Absent (.); Lyme IgG P39 Ab Absent (.); Lyme IgG P41 Ab Absent (.); Lyme IgG P45 Ab Absent (.); Lyme IgG P58 Ab Present (.); Lyme IgG P66 Ab Absent (.); Lyme IgG P93 Ab Absent (.); Lyme IgG WB Interpretation Negative (.); Lyme IgM P23 Ab Absent (.); Lyme IgM P39 Ab Absent (.); Lyme IgM P41 Ab Absent (.); Lyme IgM WB Interpretation Negative (.)
== END | disposition home or self-care (01) ==
LOC: MTLAB 08:29
PROVIDERS: PCP Nurse Practitioner Family; Referring Provider Nurse Practitioner Family; Visit Provider Nurse Practitioner Family
DX: Z00.01 Encounter for general adult medical examination with abnormal findings (principal); Z12.5 Encounter for screening for malignant neoplasm of prostate; Z20.828 Contact with and (suspected) exposure to other viral communicable diseases; M25.50 Pain in unspecified joint; R21 Rash and other nonspecific skin eruption
CPT/HCPCS: 36415; 80053; 80061; 84153; 85025; 86038; 86431; 86617; G0103

== ENCOUNTER → 2024-06-28 | Outpatient (CLI) | payer OTHER, SELFPAY ==
[2024-06-28 10:35] LABS: Hematocrit 44.8 % (40-54); Hemoglobin 14.6 g/dL (13.0-16.5); Mean Corp Hgb Conc 32.6 g/dL (32-36); Mean Corpuscular Hgb 30.8 pg (27.0-32.0); Mean Corpuscular Volume 94.5 fL (80-94); Mean Platelet Vol. 10.6 fl (6.2-12.0); Platelet Count 282 K/mm3 (150-450); RBC Distribution Width CV 13.4 % (11.6-14.6); RBC Distribution Width SD 47.3 fl (35.1-43.9); Red Blood Count 4.74 M/mm3 (4.6-6.2); White Blood Count 4.7 K/mm3 (4.4-11.0)
[2024-06-28 10:45] LABS: Hemoglobin A1c 5.8 % (3.8-5.6); Vitamin B12 618 pg/mL (211-911)
[2024-06-28 11:10] LABS: AST(SGOT) 22 U/L (15-37); Alanine Aminotransfer ALT/SGPT 39 U/L (16-61); Albumin, Serum 3.7 g/dL (3.2-5.0); Alkaline Phosphatase 87 U/L (45-117); Anion Gap 6 (5-15); BUN 16 mg/dL (7-18); BUN/Creat Ratio 16.4 RATIO (10-20); Calcium,Total 8.7 mg/dL (8.5-10.1); Chloride 103 mmol/L (98-107); Creatinine, Serum 0.98 mg/dL (0.70-1.30); EST Glomerular Filtration Rate 83 mL/min (>60); Est Glom Filt Rate - Afr Amer 101 mL/min (>60); Globulin 3.8 g/dL (2.2-4.2); Glucose 105 mg/dL (74-106); Magnesium 2.4 mg/dL (1.6-2.6); Potassium 3.9 mmol/L (3.5-5.1); Protein, Total 7.5 g/dL (6.4-8.2); Sodium Level 137 mmol/L (136-145); Thyroid Stim Hormone (TSH) 3.45 uIU/mL (0.358-3.74)
[2024-07-01 12:08] LABS: Vitamin D 1,25-Dihydroxy 31.5 pg/mL (24.8-81.5)
[2024-07-02 09:09] LABS: Free Kappa Light Chains 19.7 mg/L (3.3-19.4); Free Lambda Light Chains 19.4 mg/L (5.7-26.3)
== END | disposition home or self-care (01) ==
LOC: MTLAB 07:08
PROVIDERS: PCP Nurse Practitioner Family; Referring Provider Psychiatry & Neurology Neurology; Visit Provider Psychiatry & Neurology Neurology
DX: G62.9 Polyneuropathy, unspecified (principal); R73.9 Hyperglycemia, unspecified
CPT/HCPCS: 36415; 80053; 82607; 82652; 82746; 83036; 83735; 83883; 84425; 84443; 85027

== ENCOUNTER → 2024-07-06 | Outpatient (CLI) | payer OTHER, SELFPAY ==
[2024-07-06 08:56] LABS: Bacteria 0 SEEN /hpf (None Seen); Mucous, Urine 0 SEEN /hpf (<or=2+); Red Blood Cells-Urine 0 SEEN /hpf (0-5); Squamous Epithelial Cells - UA 0 SEEN /hpf (0-5); White Blood Cells 0 SEEN /hpf (0-5)
[2024-07-06 09:21] LABS: Absolute Lymphocyte Count 1.14 X10^3/uL (0.83-4.51); Absolute Neutrophil Count 2.7 X10^3/uL (2.0-7.7); Basophil# 0.03 X10^3/uL; Basophil% 0.6 % (0-1); Eosinophil# 0.33 X10^3/uL; Eosinophils% 6.8 % (0-5); Hematocrit 43.1 % (40-54); Hemoglobin 14.3 g/dL (13.0-16.5); Lymphocyte # 1.14 X10^3/ul (0.83-4.51); Lymphocyte % 23.4 % (19-41); Mean Corp Hgb Conc 33.2 g/dL (32-36); Mean Corpuscular Hgb 31.3 pg (27.0-32.0); Mean Corpuscular Volume 94.3 fL (80-94); Monocyte# 0.66 X10^3/uL; Monocyte% 13.5 % (0-10); NRBC Flagged by Analyzer 0 % (0-5); Neutrophil # 2.69 X10^3/uL (2.7-7.7); Neutrophil % 55.1 % (47-70); Platelet Count 237 K/mm3 (150-450); RBC Distribution Width CV 13.4 % (11.6-14.6); RBC Distribution Width SD 46.9 fl (35.1-43.9); Red Blood Count 4.57 M/mm3 (4.6-6.2); White Blood Count 4.9 K/mm3 (4.4-11.0)
[2024-07-06 09:22] LABS: Color, Urine Yellow (Yellow); Glucose, Dipstick Normal (Normal); Ketone-Dipstick Negative (Negative); Leukocyte Esterase-Dipstick Negative /ul (Negative); Nitrite-Dipstick Negative (Negative); Occult Blood-Urine Negative /ul (Negative); Protein-Dipstick 15 mg/dl (Negative); Urine Bilirubin Dipstick Negative (Negative); Urine Clarity Clear (Clear); Urine Urobilinogen Normal (Normal)
[2024-07-06 09:30] LABS: Erythrocyte Sedimentation Rate 5 mm/hr (0-20)
[2024-07-06 10:55] LABS: AST(SGOT) 25 U/L (15-37); Alanine Aminotransfer ALT/SGPT 35 U/L (16-61); Albumin, Serum 3.6 g/dL (3.2-5.0); Alkaline Phosphatase 84 U/L (45-117); Anion Gap 2 (5-15); BUN 19 mg/dL (7-18); Calcium,Total 8.7 mg/dL (8.5-10.1); Chloride 105 mmol/L (98-107); Creatinine, Serum 0.91 mg/dL (0.70-1.30); EST Glomerular Filtration Rate 91 mL/min (>60); Est Glom Filt Rate - Afr Amer 110 mL/min (>60); Globulin 3.6 g/dL (2.2-4.2); Glucose 111 mg/dL (74-106); Potassium 4.2 mmol/L (3.5-5.1); Protein, Total 7.2 g/dL (6.4-8.2); Rheumatoid Factor < 10.0 IU/mL (<15); Sodium Level 137 mmol/L (136-145)
[2024-07-09 11:59] LABS: ANTINUCLEAR ANTIBODIES DIRECT Negative (Negative)
== END | disposition home or self-care (01) ==
LOC: LAB 08:51
PROVIDERS: PCP Nurse Practitioner Family; Referring Provider Dermatology; Visit Provider Dermatology
DX: M31.0 Hypersensitivity angiitis (principal)
CPT/HCPCS: 36415; 80053; 81001; 85025; 85652; 86038; 86431

== ENCOUNTER → 2024-07-11 | Outpatient (CLI) | payer OTHER, SELFPAY ==
--- NOTE | 2024-07-11 16:09 | MRI_ITS ---
STUDY: MRI CERVICAL SPINE WITHOUT CONTRAST REASON FOR EXAM: Male, 59 years old. bilateral hand numbness TECHNIQUE: Standardized fat and water weighted pulse sequences were obtained in the sagittal and axial planes. COMPARISON: None FINDINGS: Normal foramen magnum and brainstem-cervical cord junction. Normal craniovertebral junction. Normal anterior atlantoaxial articulation. Normal odontoid process. There is straightening of the normal cervical lordosis. Normal vertebral bodies and posterior osseous elements. C2-3: Normal endplates. Normal disc height, signal and morphology. Normal central canal and intervertebral neural foramina. C3-4: Normal endplates. Normal disc height, signal and morphology. Normal central canal and intervertebral neural foramina. C4-5: Mild broad disc osteophyte complex and left uncovertebral hypertrophy produces mild spinal stenosis and mild left neural foraminal stenosis. C5-6: 2 mm retrolisthesis of C5 on C6 with a moderate broad disc osteophyte complex produces moderate spinal stenosis with abutment of the spinal cord and mild bilateral neural foraminal stenosis. C6-7: Moderate broad disc osteophyte complex reduces moderate spinal stenosis with abutment of the central spinal cord and moderate bilateral neural foraminal stenosis. C7-T1: Normal endplates. Normal disc height, signal and morphology. Normal central canal and intervertebral neural foramina. Normal cervical cord. Normal visualized soft tissue structures. MRI/Spine Cervical (Routine) IMPRESSION: Multilevel degenerative changes, as described above. Electronically Signed: Kleber Seals MD at 14:19 EDT ,
== END | disposition home or self-care (01) ==
LOC: MRI 15:44
PROVIDERS: PCP Nurse Practitioner Family; Referring Provider Psychiatry & Neurology Neurology; Visit Provider Psychiatry & Neurology Neurology
DX: M54.2 Cervicalgia (principal); R20.0 Anesthesia of skin
CPT/HCPCS: 72141

== ENCOUNTER → 2024-07-17 | Outpatient (CLI) | payer OTHER, SELFPAY ==
--- NOTE | 2024-07-17 15:12 | NEURO ---
NCS and/or EMG Patient Report Ordering Doctor: Marlon Mckay DATE OF SERVICE: 07/17/24 Jacob presents for electrodiagnostic testing of the upper limbs. Reports numbness and tingling in both hands, worse on the left side. Electrodiagnostic findings: Left median motor nerve demonstrates prolonged latency with normal amplitude and reduced conduction velocity. Right median motor nerve demonstrates prolonged distal latency with normal amplitude and reduced conduction velocity. Normal ulnar motor responses noted bilaterally. Prolonged median and ulnar F?waves. Prolonged median sensory latency at the wrist bilaterally. Needle EMG testing was performed in the upper limbs. All muscles tested showed no evidence of denervation with normal motor unit action potentials. Electrodiagnostic impression: This is an abnormal study of the upper limbs 1. Electrodiagnostic findings suggestive of bilateral median mononeuropathy. This is consistent with a moderate bilateral carpal tunnel syndrome. Multi Select Codes Neurology Neurology Interp Codes: 91359-31 Musc test done w/n test comp (interp) (2) and 09143-64 Nrv cndj test 9-10 studies (interp)
== END | disposition home or self-care (01) ==
PROVIDERS: PCP Nurse Practitioner Family; Referring Provider Psychiatry & Neurology Neurology; Visit Provider Psychiatry & Neurology Neurology
DX: M54.2 Cervicalgia (principal); G56.03 Carpal tunnel syndrome, bilateral upper limbs
CPT/HCPCS: 95886; 95911

== ENCOUNTER → 2024-07-19 | Outpatient (CLI) | payer OTHER, SELFPAY | END | disposition home or self-care (01) | PROVIDERS: PCP Nurse Practitioner Family; Referring Provider Psychiatry & Neurology Neurology; Visit Provider Psychiatry & Neurology Neurology | DX: R41.82 Altered mental status, unspecified (principal) | CPT/HCPCS: 95819 ==

== ENCOUNTER → 2024-07-31 | Outpatient (CLI) | payer OTHER, SELFPAY ==
--- NOTE | 2024-07-31 15:10 | NEURO_ITS ---
NCS and/or EMG Patient Report Ordering Doctor: Marlon Mckay DATE OF SERVICE: 07/31/24 Jacob presents with complaints of numbness and tingling in both feet. Electrodiagnostic findings: Peroneal motor nerve demonstrates normal distal latency, amplitude and conduction velocity. Left peroneal motor nerve demonstr ates normal distal latency, amplitude and conduction velocity. Reduced right tibial motor amplitude. Normal left tibial motor response. Prolonged tibial F?waves bilaterally. Borderline prolonged peroneal F?waves bilaterally. Prolonged H?reflex bilaterally. Sensory responses were not obtainable. Needle EMG testing was performed the lower limbs. All muscles tested showed no evidence of denervation with normal motor unit action potentials. Electrodiagnostic impression: This is an abnormal study in the lower limbs 1. Electrodiagnostic findings suggestive of peripheral polyneuropathy, sensory greater than motor. 2. No electrodiagnostic evidence is noted for lumbosacral radiculopathy. Multi Select Codes Neurology Neurology Interp Codes: 95506-11 Musc test done w/n test comp (interp) (2) and 28148-17 Nrv cndj test 9-10 studies (interp)
== END | disposition home or self-care (01) ==
LOC: PSN 12:03
PROVIDERS: PCP Nurse Practitioner Family; Referring Provider Psychiatry & Neurology Neurology; Visit Provider Psychiatry & Neurology Neurology
DX: G62.9 Polyneuropathy, unspecified (principal); M54.50 Low back pain, unspecified
CPT/HCPCS: 95886; 95911

== ENCOUNTER 2024-10-04 06:11 | Day surgery (SDC) | payer OTHER, SELFPAY ==
[2024-10-04] VITALS (8 sets, daily range): BP systolic 97–162; BP diastolic 60–85; PULSE 47–62; RESP 16–18; TEMP 36.5–36.7; O2SAT 97–100; BMI 28.4
== END 2024-10-04 09:28 | disposition home or self-care (01) ==
LOC: EN 06:12 → AC 06:14
PROVIDERS: PCP Nurse Practitioner Family; Referring Provider Nurse Practitioner Family; Visit Provider Surgery
PROC: 0DJD8ZZ Inspection of Lower Intestinal Tract, Via Natural or Artificial Opening Endoscopic (ICD-10-PCS; CPT 45378; principal; 2024-10-04 07:25)
DX: Z12.11 Encounter for screening for malignant neoplasm of colon (principal); K64.9 Unspecified hemorrhoids; Z79.82 Long term (current) use of aspirin; I10 Essential (primary) hypertension; Z79.899 Other long term (current) drug therapy
CPT/HCPCS: 45378; A4216; J2405

== ENCOUNTER → 2024-10-21 | Outpatient (CLI) | payer OTHER, SELFPAY ==
[2024-10-23 16:10] LABS: Albumin 3.6 g/dL (2.9-4.4); Alpha-1-Globulins 0.2 g/dL (0.0-0.4); Alpha-2-Globulins 0.8 g/dL (0.4-1.0); Gamma Globulin 0.9 g/dL (0.4-1.8); Immunoglobulin A 287 mg/dL (90-386); Immunoglobulin G 1001 mg/dL (603-1613); Immunoglobulin M 45 mg/dL (20-172); PROEL- TOTAL PROTEIN 6.5 g/dL (6.0-8.5)
== END | disposition home or self-care (01) ==
PROVIDERS: PCP Nurse Practitioner Family; Referring Provider Psychiatry & Neurology Neurology; Visit Provider Psychiatry & Neurology Neurology
DX: G62.9 Polyneuropathy, unspecified (principal)
CPT/HCPCS: 36415; 82784; 84165; 86334; 86335

== ENCOUNTER → 2025-07-29 | Outpatient (CLI) | payer BC, SELFPAY ==
[2025-07-29 10:37] LABS: Hematocrit 43.3 % (40-54); Hemoglobin 14.5 g/dL (13.0-16.5); Immature Granulocytes Count 0.020 X10^3/uL (0.0-0.0); Mean Corp Hgb Conc 33.5 g/dL (32-36); Mean Corpuscular Volume 94.7 fL (80-94); Mean Platelet Vol. 9.9 fl (6.2-12.0); NRBC Flagged by Analyzer 0 % (0-5); Platelet Count 273 K/mm3 (150-450); RBC Distribution Width CV 13.1 % (11.6-14.6); RBC Distribution Width SD 45.2 fl (35.1-43.9); Red Blood Count 4.57 M/mm3 (4.6-6.2); White Blood Count 5.8 K/mm3 (4.4-11.0)
[2025-07-29 11:52] LABS: AST(SGOT) 27 U/L (<=37); Alanine Aminotransfer ALT/SGPT 33 U/L (<=46); Albumin, Serum 4.5 g/dL (3.4-4.8); Alkaline Phosphatase 97 U/L (40-129); Anion Gap 10 (5-15); BUN 17 mg/dL (4-19); BUN/Creat Ratio 16.9 RATIO (10-20); Calcium,Total 9.8 mg/dL (7.6-11.0); Carbon Dioxide 27.4 mmol/L (21.0-32.0); Chloride 103 mmol/L (98-108); Cholesterol 169 mg/dL (<=200); Globulin 3.1 g/dL (2.2-4.2); Glucose 110 mg/dL (70-99); Low Density Lipoprotein Calc. 107 mg/dL; PSA,Total - Annual Screen 0.53 ng/mL (0.02-4.00); Potassium 4.7 mmol/L (3.3-5.1); Triglycerides 107 mg/dL; Very Low Density Lipoprotein 21 mg/dL (5-40); cholesterol:hdl ratio screen 4.20
== END | disposition home or self-care (01) ==
LOC: MTLAB 08:45
PROVIDERS: PCP Nurse Practitioner Family; Referring Provider Nurse Practitioner Family; Visit Provider Nurse Practitioner Family
DX: Z12.5 Encounter for screening for malignant neoplasm of prostate (principal); I10 Essential (primary) hypertension; E78.5 Hyperlipidemia, unspecified
CPT/HCPCS: 36415; 80053; 80061; 84153; 85025; G0103

== ENCOUNTER → 2025-08-11 | Outpatient (CLI) | payer BC, SELFPAY ==
[2025-08-11 11:04] LABS: Vitamin B12 1026 pg/mL (180-914)
[2025-08-13 12:09] LABS: Vitamin D 1,25-Dihydroxy 28.7 pg/mL (24.8-81.5)
[2025-08-16 12:09] LABS: Folate, Hemolysate Test 484.0 ng/mL (Not Estab.); VITAMIN B6 7.6 ug/L (3.4-65.2); Vitamin B1, Thiamine 163.4 nmol/L (66.5-200.0)
== END | disposition home or self-care (01) ==
LOC: MTLAB 08:38
PROVIDERS: PCP Nurse Practitioner Family; Referring Provider Psychiatry & Neurology Neurology; Visit Provider Psychiatry & Neurology Neurology
DX: G31.84 Mild cognitive impairment of uncertain or unknown etiology (principal); R73.9 Hyperglycemia, unspecified
CPT/HCPCS: 36415; 82607; 82652; 82747; 83036; 84207; 84425; 84443; 85014

== ENCOUNTER → 2025-09-04 | Outpatient (CLI) | payer OTHER, SELFPAY ==
--- NOTE | 2025-09-04 11:08 | MRI_ITS ---
PROCEDURE: BRAIN W/WO CONTRAST 09/04/2025 REASON FOR EXAM: MILD COGNITIVE IMPAIRMENT TECHNIQUE: Procedure Code: [id number] Modality: MR Procedure: BRAIN W/WO CONTRAST Multiplanar and multisequence images were obtained. CONTRAST: Clariscan VOLUME: 20 mL intravenous. COMPARISON: Brain MRI 04/04/2024. FINDINGS: Brain: No intracranial mass or mass effect is seen. No area of abnormal signal is seen. No extra-axial fluid collection is noted. No orbital pathology is seen. Internal auditory canals appear symmetric and within the normal range. No area of abnormal enhancement is seen. Diffusion: Diffusion-weighted images demonstrate no area of restricted diffusion. Ventricles: Normal. Sinuses: Minimal mucosal thickening. Mastoids: Clear. Other: No area of abnormal enhancement is seen. MRI/Brain W/WO Contrast IMPRESSION: No significant intracranial abnormality is noted. Reading Location: [place] [id number]
== END | disposition home or self-care (01) ==
PROVIDERS: PCP Nurse Practitioner Family; Referring Provider Psychiatry & Neurology Neurology; Visit Provider Psychiatry & Neurology Neurology
DX: G31.84 Mild cognitive impairment of uncertain or unknown etiology (principal)
CPT/HCPCS: 70553; A9575